=== PATIENT | female | born 1955 | race Caucasian/White ===

== ENCOUNTER 2018-08-26 18:36 | Emergency (ER) | payer MEDICARE, OTHER ==
[~2018-08-26] VITALS: Ht 152.4 cm; Wt 79.4 kg
[~2018-08-26 18:36] MED LIST: AMBIEN; CELEBREX; DETROL LA; DETROL LA4 MG PO; ESTRACE0.5 MG PO; HYDROCODONE; HYDROCODONE-AP1 EA28 PO; HYOSCYAMINE0.125 MG PO; IMITREX; LEVOTHYROXINE; LEVOTHYROXINE125 MCG PO; MAXALT10 MG PO; MELOXICAM7.5 MG PO; MONTELUKAST SOD10 MG PO; NEXIUM40 MG PO; NORCO 7.5-3251 EACH PO; ORACEA; PROPRANOLOL HCL80 MG PO; SIMVASTATIN; SIMVASTATIN40 MG PO; SKELAXIN; SKELAXIN800 M1 PO; SUCRALFATE1 GM PO; TEMAZEPAM30 MG PO; VITAMIN B-121000 MCG PO; VITAMIN D1000 UNIT PO; Z.0.AMBIEN CR12.5 MG PO; Z.0.CELEBREX200 MG PO; Z.0.DETROL LA4 MG PO; Z.0.IMITREX100 MG PO; Z.0.LEVOTHYROXINE25 PO; Z.0.SIMVASTATIN40 MG PO
--- OUTSIDE RECORDS SUMMARY | 2018-08-26 18:40 | XMS REPORT ---
Author Author Alek Sweeney Organization [employer] Address Unknown Phone Unavailable Care Team Providers Care Nurse Leader Name Role Phone Alek Sweeney CP Unavailable Allergies No Known Allergies Problems Problem Type Condition Code Onset Dates Condition Status Problem Rheumatoid arthritis M06.9 Active Problem Polyarthritis M13.0 Active Problem Osteopenia M85.80 Active Medications Medication Code System Code Instructions Start Date End Date Status Dosage Enbrel Mini [facility] 88937469934 50 MG/ML Subcutaneous qwkly July 21, 2018 Active 1 ml Results No Known Results Summary Purpose [employer] Submission
--- OUTSIDE RECORDS SUMMARY | 2018-08-26 18:40 | XMS REPORT ---
Author Author Alek Sweeney [facility] [employer] Address Unknown Phone Unavailable Care Team Providers Care Imaging Tech Name Role Phone Alek Sweeney Unavailable Allergies, Adverse Reactions, Alerts Substance Reaction Event Type Codeine Info Not Available Non Drug Allergy Plastic adhesive tape Info Not Available Non Drug Allergy Cortisone Celestone Elevated blood pressure Non Drug Allergy Penicillin hives Non Drug Allergy Morphine Info Not Available Non Drug Allergy Iodine hives Non Drug Allergy Problems Problem Type Condition Code Onset Dates Condition Status Problem Rheumatoid arthritis M06.9 Active Problem Polyarthritis M13.0 Active Problem Osteopenia M85.80 Active Assessment Osteopenia M85.80 Active Assessment Rheumatoid arthritis M06.9 Active Medications Medication Code System Code Instructions Start Date End Date Status Dosage Humira [facility] 74838167143 40 MG/0.4ML Subcutaneous q weekly Apr 09, 2018 September 12, 2018 Active 0.4 ml Metoprolol Tartrate ND 46329692936 25 MG Orally Twice a day Active 1 tablet with food Phenytoin Sodium [facility] [address]-28 100 MG Orally daily Active 1 capsule Folic Acid ND 07689803610 1 MG Orally Once a day Jan 04, 2018 Active 1 tablet Temazepam ND 81426838729 30 MG Orally Once a day Active 1 capsule at bedtime as needed Alendronate Sodium [facility] 98111103525 35 MG Orally once a week Jan 04, 2018 Active 1 tablet Methotrexate ND 27956127694 2.5mg Orally Once a week Jan 04, 2018 Active 8 tablets Gabapentin ND 71801179431 600 MG Orally Once a day Active 1 tablet Propranolol HCl ND 06101904591 80 MG Orally Twice a day Active 1 tablet Levothyroxine Sodium ND 22360326801 125 MCG Orally Once a day Active 1 tablet on an empty stomach in the morning Furosemide ND 46302677383 20 MG Orally Once a day Active 1 tablet Omeprazole ND 74634266780 40 MG Orally Once a day Active 1 capsule Calcium 600+D [facility] 35663338844 600-800 MG-UNIT Orally Once a day Active 1 tablet with a meal Vitamin D3 [facility] 30822185437 2000 UNIT Orally Once a day Active 1 capsule Hydrocodone-Acetaminophen [facility] 33932156960 7.5-325 MG Orally every 6 hrs Active 1 tablet as needed Biotin [facility] 58622954530 5000 MCG Orally Once a day Active 1 capsule Maxalt [facility] 12300127252 10 MG Orally Once a day Active 1 tablet as needed one time Spironolactone [facility] 45429449406 25 MG Orally Once a day Active 1 tablet with food Tizanidine HCl [facility] 21024501018 4 MG Orally Three times a day Active 1 capsule as needed Vital Signs Date/Time: June 14, 2018 BMI 31.60 Index Weight 161.8 lbs Height 60 in Temperature 96.3 F Cardiac Monitoring Heart Rate 60 /min Blood Pressure Diastolic 58 mm Hg Blood Pressure Systolic 90 mm Hg Results No Known Results Summary Purpose [employer] Submission
--- OUTSIDE RECORDS SUMMARY | 2018-08-26 18:40 | XMS REPORT ---
Author Grabiel Kenney Organization [employer] Address Unknown Phone Unavailable Care Team Providers Care Vice President Media Relations Name Role Phone Grabiel Ortiz CP Unavailable Allergies No Known Allergies Problems Problem Type Condition Code Onset Dates Condition Status Problem Rheumatoid arthritis M06.9 Active Problem Polyarthritis M13.0 Active Problem Osteopenia M85.80 Active Medications No Known Medications Results No Known Results Summary Purpose [employer] Submission
--- OUTSIDE RECORDS SUMMARY | 2018-08-26 18:40 | XMS REPORT ---
Author Grabiel Kenney Organization [employer] Address Unknown Phone Unavailable Care Team Providers Care Staying Machine Operator Name Role Phone Grabiel Ortiz CP Unavailable Allergies No Known Allergies Problems Problem Type Condition Code Onset Dates Condition Status Problem Rheumatoid arthritis M06.9 Active Problem Polyarthritis M13.0 Active Problem Osteopenia M85.80 Active Medications No Known Medications Results No Known Results Summary Purpose [employer] Submission
--- OUTSIDE RECORDS SUMMARY | 2018-08-26 18:40 | XMS REPORT ---
Author Author Alek Sweeney [facility] [employer] Address Unknown Phone Unavailable Care Team Providers Care Archives Technician Name Role Phone Alek Sweeney Unavailable Allergies, Adverse Reactions, Alerts Substance Reaction Event Type Plastic adhesive tape Info Not Available Non Drug Allergy Cortisone Celestone Elevated blood pressure Non Drug Allergy Penicillin hives Non Drug Allergy Morphine Info Not Available Non Drug Allergy Iodine hives Non Drug Allergy Codeine Info Not Available Non Drug Allergy Problems Problem Type Condition Code Onset Dates Condition Status Problem Rheumatoid arthritis M06.9 Active Problem Polyarthritis M13.0 Active Problem Osteopenia M85.80 Active Assessment Osteopenia M85.80 Active Assessment Rheumatoid arthritis M06.9 Active Medications Medication Code System Code Instructions Start Date End Date Status Dosage Phenytoin Sodium [facility] [address]-39 100 MG Orally daily Active 1 capsule Gabapentin ND 60245115847 600 MG Orally Once a day Active 1 tablet Humira [facility] 68329291910 40 MG/0.4ML Subcutaneous Feb 02, 2018 Active 0.4 ml Furosemide [facility] 38046702066 20 MG Orally Once a day Active 1 tablet Alendronate Sodium ND 58512744544 35 MG Orally once a week Jan 04, 2018 Active 1 tablet Propranolol HCl ND 09549164825 80 MG Orally Twice a day Active 1 tablet Temazepam ND 44595097899 30 MG Orally Once a day Active 1 capsule at bedtime as needed Metoprolol Tartrate ND 32328427490 25 MG Orally Twice a day Active 1 tablet with food Tizanidine HCl ND 54149984842 4 MG Orally Three times a day Active 1 capsule as needed Spironolactone ND 22789632066 25 MG Orally Once a day Active 1 tablet with food Biotin ND 88950630159 5000 MCG Orally Once a day Active 1 capsule Tumeric NDC 0 300 MG Orally Once a day Active 1 capsule Calcium 600+D [facility] 52870719908 600-800 MG-UNIT Orally Once a day Active 1 tablet with a meal Hydrocodone-Acetaminophen [facility] 74477784839 7.5-325 MG Orally every 6 hrs Active 1 tablet as needed Maxalt [facility] 19411809183 10 MG Orally Once a day Active 1 tablet as needed one time Levothyroxine Sodium ND 61288507552 100 MCG Orally Once a day Active 1 tablet on an empty stomach in the morning Folic Acid ND 91753756356 1 MG Orally Once a day Jan 04, 2018 Active 1 tablet Levothyroxine Sodium [facility] 92151004281 125 MCG Orally Once a day Active 1 tablet on an empty stomach in the morning Omeprazole [facility] 17126181979 40 MG Orally Once a day Active 1 capsule Vitamin D3 [facility] 18026389902 2000 UNIT Orally Once a day Active 1 capsule Methotrexate NDC 0 2.5mg Orally Once a week Jan 04, 2018 Active 8 tablets Vital Signs Date/Time: Mar 16, 2018 BMI 30.46 Index Weight 156 lbs Height 60 in Temperature 97.8 F Cardiac Monitoring Heart Rate 68 /min Blood Pressure Diastolic 80 mm Hg Blood Pressure Systolic 130 mm Hg Results No Known Results Summary Purpose [employer] Submission
--- OUTSIDE RECORDS SUMMARY | 2018-08-26 18:40 | XMS REPORT | Continuity of Care Document ---
Author Author [facility] Interface Address Unknown Phone Unavailable Problems Problem Status Onset Date Classification Date Reported Comments Source Z12.31 - ENCNTR SCREEN MAMMOGRAM FOR MA Active 02/06/2017 [facility] V76.12 - SCREEN MAMMOGRA Active 05/15/2014 [facility] Migraines Active Problem 05/23/2015 [facility] Hypothyroid Active Problem 05/23/2015 [facility] GERD Active Problem 05/23/2015 [facility] Menopausal and postmenopausal disorder Active Diagnosis 05/03/2014 [facility] Routine general medical examination at a health care facility Active Diagnosis 05/03/2014 [facility] Chronic back pain Active Problem 05/23/2015 [facility] Graves disease Active Problem 05/23/2015 [facility] Body Mass Index 33.0-33.9, adult Active Diagnosis 05/03/2014 [facility] Obesity Active Problem 05/23/2015 [facility] Multiple environmental allergies Active Problem 05/23/2015 [facility] Asthma Active Problem 05/23/2015 [facility] DDD Active Problem 05/23/2015 [facility] Hyperlipemia Active Problem 05/11/2014 [facility] Bladder incontinence Active Problem 05/23/2015 [facility] Insomnia Active Problem 05/23/2015 [facility] Hormone replacement therapy Active Problem 05/23/2015 [facility] Hyperlipidemia Active Problem 05/23/2015 [facility] Gastroenteritis Active Diagnosis 05/17/2014 [facility] Rheumatoid arthritis Active Problem 07/24/2018 Sourav Ortiz Polyarthritis Active Problem 07/24/2018 Sourav Ortiz Osteopenia Active Problem 07/24/2018 Sourav Ortiz Hand pain, right Active Diagnosis 11/11/2017 Sourav Ortiz Hand pain, left Active Diagnosis 11/11/2017 Sourav Ortiz Depression Active Diagnosis 06/27/2014 [facility] Asthma Active Problem 07/29/2012 [facility] Bronchitis Active Problem 07/29/2012 [facility] Eczema Active Problem 07/29/2012 [facility] Hemorrhoids Active Problem 07/29/2012 [facility] Migraine Active Problem 07/29/2012 [facility] Osteoarthritis Active Problem 07/29/2012 [facility] Reflux Active Problem 07/29/2012 [facility] Sinusitis Active Problem 07/29/2012 [facility] Thyroid disease Active Problem 07/29/2012 [facility] Asthma Active Problem 08/27/2017 [facility] Bronchitis Active Problem 08/27/2017 [facility] Eczema Active Problem 08/27/2017 [facility] Hemorrhoids Active Problem 08/27/2017 [facility] Migraine Active Problem 08/27/2017 [facility] Osteoarthritis Active Problem 08/27/2017 [facility] Reflux Active Problem 08/27/2017 [facility] Sinusitis Active Problem 08/27/2017 [facility] Thyroid disease Active Problem 08/27/2017 [facility] Medications Medication Details Route Status Patient Instructions Ordering Provider Order Date Source Enbrel Mini 1 ml Subcutaneous Active 50 MG/ML Subcutaneous qwkly Zahra 07/21/2018 Sourav Ortiz Enbrel Mini 1 ml Subcutaneous Active 50 MG/ML Subcutaneous qwkly Zahra 07/12/2018 Sourav Ortiz Humira 0.4 ml Subcutaneous Active 40 MG/0.4ML Subcutaneous q weekly Zahra 04/09/2018 Sourav Ortiz Humira 0.4 ml Subcutaneous Active 40 MG/0.4ML Subcutaneous Zahra 02/02/2018 Sourav Ortiz Alendronate Sodium 1 tablet Orally Active 35 MG Orally once a week Zahra 01/04/2018 Sourav Ortiz Folic Acid 1 tablet Orally Active 1 MG Orally Once a day Zahra 01/04/2018 Sourav Ortiz Methotrexate 8 tablets Orally Active 2.5mg Orally Once a week Zahra 01/04/2018 Sourav Ortiz Methotrexate 8 tablets Orally Active 2.5mg Orally Once a week Zahra 01/04/2018 Sourav Ortiz Hydroxychloroquine Sulfate 1 tablet with food or milk Orally Active 200 MG Orally bid 01/04/2018 Sourav Ortiz Folic Acid 1 tablet Orally Active 1 MG Orally Once a day 12/10/2017 Sourav Ortiz Methotrexate 4 tabs x 1wk, 6tabs x1wk and then take 8 tabs Orally Active 2.5mg Orally Once a week 12/10/2017 Sourav Ortiz Alendronate Sodium 1 tablet Orally Active 35 MG Orally once a week 12/10/2017 Sourav Ortiz PredniSONE 1 tab Orally Active 5 MG Orally Once a day 12/10/2017 Sourav Ortiz PredniSONE 1 tab Orally Active 5 MG Orally Once a day 11/06/2017 Sourav Ortiz Celebrex 1 capsule with food Orally Active 100 MG Orally Twice a day 11/06/2017 Sourav Ortiz Hydroxychloroquine Sulfate 1 tablet with food or milk Orally Active 200 MG Orally bid 11/06/2017 Sourav Ortiz Detrol LA 1 capsule by mouth Active 4 mg by mouth Once a day [facility] 11/26/2014 [facility] Escitalopram Oxalate 1 tablet Orally Active 10 mg Orally Once a day Evans 06/21/2014 [facility] influenza virus vaccine, inactivated 0.5 ml, Route: IM, Drug Form: INJ, Start date: 02/12/10 9:00:00, Stop date: 02/12/10 9:00:00 IM No Longer Active SYSTEM 02/12/2010 [facility] Vitamin B-12 Unknown Sublingual Active 2500 MCG Sublingual [facility] Nexium 1 capsule Orally Active 20 MG Orally Once a day [facility] Maxalt 1 tablet as needed one time Orally Active 10 mg Orally Once a day [facility] Simvastatin 1 tablet in the evening Orally Active 40 MG Orally Once a day [facility] Montelukast Sodium 1 tablet in the evening Orally Active 10 MG Orally Once a day [facility] Estradiol 1 tablet Orally Active 0.5 MG Orally Once a day [facility] Levothyroxine Sodium 1 tablet Orally Active 125 MCG Orally Once a day [facility] [place] 1 tablet as needed Orally Active 7.5-325 MG Orally every 6 hrs [facility] Gabapentin 1 capsule Orally Active 300 MG Orally Three times a day [facility] Propranolol HCl Unknown Orally Active 80 MG Orally [facility] Levocetirizine Dihydrochloride 1 tablet in the evening Orally Active 5 MG Orally Once a day [facility] Methocarbamol 1 tablet Orally Active 750 MG Orally every 8 hrs [facility] Biotin 5000 1 capsule Orally Active 5 MG Orally Once a day [facility] Vitamin D3 Unknown Orally Active 2000 UNIT Orally [facility] Sucralfate 1 tablet on an empty stomach Orally Active 1 GM Orally once a day [facility] Hyoscyamine Sulfate 1 tablet before meals as needed Orally Active 0.125 MG Orally every 4 hrs [facility] Detrol LA 1 capsule Orally Active 4 MG Orally Once a day [facility] Meloxicam 1 tablet Orally Active 7.5 MG Orally Once a day [facility] Temazepam 1 capsule at bedtime as needed Orally Active 30 mg Orally Once a day [facility] Levothyroxine Sodium 1 tablet on an empty stomach in the morning Orally Active 100 MCG Orally Once a day Zahra Sourav Ortiz Hydrocodone-Acetaminophen 1 tablet as needed Orally Active 7.5- 325 MG Orally every 6 hrs Zahra Sourav Ortiz Omeprazole 1 capsule Orally Active 40 MG Orally Once a day Zahra Sourav Ortiz Biotin 1 capsule Orally Active 5000 MCG Orally Once a day Zahra Sourav Ortiz Maxalt 1 tablet as needed one time Orally Active 10 MG Orally Once a day Zahra Sourav Ortiz Spironolactone 1 tablet with food Orally Active 25 MG Orally Once a day Zahra Sourav Ortiz Vitamin B12 as directed Orally Active 2500 MCG Orally Zahra Sourav Ortiz Tizanidine HCl 1 capsule as needed Orally Active 4 MG Orally Three times a day Zahra Sourav Ortiz Propranolol HCl 1 tablet Orally Active 80 MG Orally Twice a day Zahra Sourav Ortiz Metoprolol Tartrate 1 tablet with food Orally Active 25 MG Orally Twice a day Zahra Sourav Ortiz Gabapentin 1 tablet Orally Active 600 MG Orally Once a day Zahra Sourav Ortiz Vitamin B6 1 tablet Orally Active 100 MG Orally Once a day Sourav Ortiz Vitamin D3 1 capsule Orally Active 2000 UNIT Orally Once a day Zahra Sourav Ortiz Temazepam 1 capsule at bedtime as needed Orally Active 30 MG Orally Once a day Zahra Sourav Ortiz Furosemide 1 tablet Orally Active 20 MG Orally Once a day Sourav Ortiz Tumeric 1 capsule Orally Active 300 MG Orally Once a day Zahra Sourav Ortiz Phenytoin Sodium 1 capsule Orally Active 100 MG Orally daily Zahra Sourav Ortiz Calcium 600+D 1 tablet with a meal Orally Active 600-800 MG-UNIT Orally Once a day Sourav Ortiz Levothyroxine Sodium 1 tablet on an empty stomach in the morning Orally Active 125 MCG Orally Once a day Sourav Ortiz Atorvastatin Calcium 1 tablet Orally Active 20 MG Orally Once a day Sourav Ortiz Hydroxychloroquine Sulfate 1 tablet with food or milk Orally Active 200 MG Orally bid Zahra Sourav Ortiz Allergies, Adverse Reactions, Alerts Substance Category Reaction Severity Reaction type Status Date Reported Comments Source Adhesive Tape Adverse Reaction rash Adverse Reaction Active 06/21/2014 [facility] Vancomycin HCl Adverse Reaction hives Adverse Reaction Active 06/21/2014 [facility] Morphine Sulfate Adverse Reaction rash Adverse Reaction Active 06/21/2014 [facility] Codeine Sulfate Adverse Reaction anaphylaxis Adverse Reaction Active 06/21/2014 [facility] Iodine Adverse Reaction hives Adverse Reaction Active 07/12/2018 Sourav Ortiz Plastic adhesive tape Adverse Reaction Info Not Available Adverse Reaction Active 07/12/2018 Sourav Ortiz Cortisone Celestone Adverse Reaction Elevated blood pressure Adverse Reaction Active 07/12/2018 Sourav Ortiz Penicillin Adverse Reaction hives Adverse Reaction Active 07/12/2018 Sourav Ortiz Morphine Adverse Reaction Info Not Available Adverse Reaction Active 07/12/2018 Sourav Ortiz Codeine Adverse Reaction Info Not Available Adverse Reaction Active 07/12/2018 Souravkhoi Ortiz penicillin Assertion Drug allergy Active [facility] iodinated radiocontrast dyes Assertion Drug allergy Active [facility] iodine topical Assertion Drug allergy Active [facility] morphine Assertion Drug allergy Active [facility] Tape Assertion Drug allergy Active [facility] vancomycin Assertion Propensity to adverse reactions to substance Active [facility] Immunizations Immunization Date Given Site Status Last Updated Comments Source influenza virus vaccine, inactivated 02/12/2010 completed [facility] influenza virus vaccine, inactivated 02/12/2010 Left deltoid completed [facility] Results Order Name Results Value Reference Range Date Interpretation Comments Source Breast Mammo Diag JUAN incl CAD MA Breast Mammo Diag JUAN incl CAD MA BILATERAL DIGITAL DIAGNOSTIC MAMMOGRAM WITH CAD: 08/24/2017 CLINICAL: N64.59 Other Signs And Symptoms In Breast/N64.59 Other Signs And Symptoms In Breast. Current study was evaluated with a Computer Aided Detection (CAD) system. COMPARISON:Comparison is made to exams dated: 03/04/2017 mammogram, 02/06/2017 mammogram, 06/14/2014 mammogram, 05/26/2014 mammogram, 07/27/2012 mammogram, and 07/09/2011 mammogram - [facility]. TECHNIQUE: Mammographic views were obtained using digital acquisition. Current study was also evaluated with a Computer Aided Detection (CAD) system. FINDINGS: There are scattered fibroglandular densities in both breasts. Previously seen focal asymmetry in the left breast central to the nipple anterior depth is not seen on today's exam. There are benign appearing calcifications in both breasts. Bilateral retropectoral silicone implants are stable. No significant masses, calcifications, or other findings are seen in either breast. There has been no significant interval change. IMPRESSION: BENIGN RECOMMENDATION:There is no mammographic evidence of malignancy. A 1 year screening mammogram is recommended.(08/25/2018) This exam was interpreted at [id number] for [place], SL 15. Professional services are provided by the [facility]. Violet Parker M.D., ms/geovany:08/24/2017 11:06:30 Quality Lab Technician(s): Teri Bonilla RT(R)(M), [facility] letter sent: BI-RADS 1/2 Mammogram BI-RADS: 2 Benign 08/24/2017 - - Read by: Violet Parker MD Dictated Date/time: 08/24/17 11:06 Electronically Signed by: Violet Parker MD 08/24/17 11:06 FINAL REPORT NICO Lowery Breast Complete Uni US Breast Complete Uni US COMPLETE ULTRASOUND OF LEFT BREAST AND AXILLA: 03/04/2017 CLINICAL: Left Breast Mass/N63.0 Unspecified Lump In Unspecified Breast. Comparison is made to exams dated: 03/04/2017 mammogram, 02/06/2017 mammogram, 06/14/2014 ultrasound, 06/14/2014 mammogram, 05/26/2014 mammogram, and 07/27/2012 mammogram - [facility]. Color flow and real-time ultrasound of the left breast and axilla were performed on the areas of interest. No abnormalities were seen sonographically in the left breast or the left axilla. An island of dense tissue is seen in the area of mammographic asymmetry without suspicious findings. No vascular flow is detected in this area. IMPRESSION: PROBABLY BENIGN No suspicious or discrete US findings are seen and the area of mammographic concern may be related to positioning. Therefore a follow-up mammogram with possible ultrasound in 6 months is recommended to demonstrate stability. These results were discussed with the patient who was instructed to return immeidately if she notices any changes in her physical exam. Professional services are provided by the [facility]. Aki Wong M.D. cm/:03/04/2017 14:09:59 Quality Lab Technician(s): Cintia Schwartz [facility] letter sent: BI-RADS 3 Ultrasound BI-RADS: 3 Probably benign 03/04/2017 - - Read by: Manuel Deluca MD Dictated Date/time: 03/04/17 14:09 Electronically Signed by: Manuel Deluca MD 03/04/17 14:09 FINAL REPORT NICO Lowery Breast Mammo Diag UNI incl CAD MA Breast Mammo Diag UNI incl CAD MA UNILATERAL LEFT DIGITAL DIAGNOSTIC MAMMOGRAM WITH CAD: 03/04/2017 CLINICAL: N63.0/Unspecified Lump In Unspecified Breast. Current study was evaluated with a Computer Aided Detection (CAD) system. COMPARISON:Comparison is made to exams dated: 02/06/2017 mammogram, 06/14/2014 mammogram, 05/26/2014 mammogram, 07/27/2012 mammogram, 07/09/2011 mammogram, and 06/25/2010 mammogram - [facility]. TECHNIQUE: Mammographic views were obtained using digital acquisition. Current study was also evaluated with a Computer Aided Detection (CAD) system. There are scattered fibroglandular densities in left breast. FINDINGS: There is 4.3 cm focal asymmetry in the left breast central to the nipple anterior depth. No other significant masses or calcifications are seen in the breast. IMPRESSION: INCOMPLETE: NEEDS ADDITIONAL IMAGING EVALUATION RECOMMENDATION:The 4.3 cm focal asymmetry in the left breast is indeterminate. An ultrasound is recommended. This exam was interpreted at [id number] for KERMIT Lowery. Aki Wong M.D. cm/penrad:03/04/2017 13:57:59 Quality Lab Technician(s): Teri Bonilla RT(R)(M), [facility] letter sent: BI-RADS 0 Mammogram BI-RADS: 0 Indeterminate 03/04/2017 - - Read by: aMnuel Deluca MD Dictated Date/time: 03/04/17 13:57 Electronically Signed by: Manuel Deluca MD 03/04/17 13:57 FINAL REPORT [facility] Breast Mammo Scrn JUAN incl CAD MA Breast Mammo Scrn JUAN incl CAD MA BILATERAL DIGITAL SCREENING MAMMOGRAM WITH CAD: 02/06/2017 CLINICAL: Routine/Screening. Current study was evaluated with a Computer Aided Detection (CAD) system. COMPARISON:Comparison is made to exams dated: 06/14/2014 mammogram, 05/26/2014 mammogram, and 07/27/2012 mammogram - [facility]. TECHNIQUE: Mammographic views were obtained using digital acquisition. Current study was also evaluated with a Computer Aided Detection (CAD) system. There are scattered fibroglandular densities in both breasts. FINDINGS: There is a possible 4.3 cm mass with calcifications in the left breast central to the nipple anterior depth. No other significant masses, calcifications, or other findings are seen in either breast. IMPRESSION: INCOMPLETE: NEEDS ADDITIONAL IMAGING EVALUATION RECOMMENDATION:The possible 4.3 cm mass in the left breast is indeterminate. Magnification and lateral views as well as diagnostic mammography with possible ultrasound are recommended. This exam was interpreted at [id number] at [facility]. SUMMARY: The staff from [facility] will contact the patient to schedule the additional studies. A separate report will be issued following interpretation of the additional studies. An order for a bilateral ultrasound is requested, in the event it is needed, day of diagnostic. Hortensia Ag M.D. kg/penrad:02/10/2017 08:39:29 Quality Lab Technician(s): Chcia Calderon RT(R)(M), [facility] letter sent: BI-RADS 0 Mammogram BI-RADS: 0 Indeterminate 02/06/2017 - - Read by: Hortensia Ag MD Dictated Date/time: 02/10/17 08:39 Electronically Signed by: Hortensia Ag MD 02/10/17 08:39 FINAL REPORT NICO [place] Breast Limited Uni US Breast Limited Uni US - DIGITAL MAMMO DX UNI MA/R - BREAST LIMITED UNI US/R UNILATERAL RIGHT DIGITAL DIAGNOSTIC MAMMOGRAM AND TARGETED RIGHT ULTRASOUND: 06/14/2014 CLINICAL: Callback from screening for right asymmetry. Comparison is made to exams dated: 07/09/2011 mammogram, 07/27/2012 mammogram and 05/26/2014 mammogram - [facility]. There are scattered fibroglandular densities in the right breast. Additional evaluation performed for medial right asymmetry. This was less prominent on additional views, and targeted ultrasound was negative. No significant masses, calcifications, or other findings are seen in the breast on the mammogram or targeted ultrasound. IMPRESSION: BENIGN, TARGETED ULTRASOUND BENIGN There is no mammographic or targeted sonographic evidence of malignancy. Return to annual mammogram screening schedule is recommended. SUMMARY: Findings and recommendations were discussed with the patient in person at the time of the exam. Alexy ahmadi/penrad:06/14/2014 11:17:55 Quality Lab Technician: Aspen Mcgill RT(R)(M), [facility] This exam was dictated and [facility] [id number] [facility] sent: Normal exam Mammogram BI-RADS: 2 Benign Ultrasound BI-RADS: 2 Benign 06/14/2014 - - Read by: Alexy Mendez MD Dictated Date/time: 06/14/14 11:17 Electronically Signed by: Alexy Mendez MD 06/14/14 11:17 FINAL REPORT KERMIT Lowery Digital Mammo DX Uni MA Digital Mammo DX Uni MA - DIGITAL MAMMO DX UNI MA/R - BREAST LIMITED UNI US/R UNILATERAL RIGHT DIGITAL DIAGNOSTIC MAMMOGRAM AND TARGETED RIGHT ULTRASOUND: 06/14/2014 CLINICAL: Callback from screening for right asymmetry. Comparison is made to exams dated: 07/09/2011 mammogram, 07/27/2012 mammogram and 05/26/2014 mammogram - [facility]. There are scattered fibroglandular densities in the right breast. Additional evaluation performed for medial right asymmetry. This was less prominent on additional views, and targeted ultrasound was negative. No significant masses, calcifications, or other findings are seen in the breast on the mammogram or targeted ultrasound. IMPRESSION: BENIGN, TARGETED ULTRASOUND BENIGN There is no mammographic or targeted sonographic evidence of malignancy. Return to annual mammogram screening schedule is recommended. SUMMARY: Findings and recommendations were discussed with the patient in person at the time of the exam. Alexy ahmadi/penrad:06/14/2014 11:17:55 Quality Lab Technician: Aspen MCKEON(Alix)(Pete), [facility] This exam was dictated and interpreted by [id number] for KERMIT Lowery. letter sent: Normal exam Mammogram BI-RADS: 2 Benign Ultrasound BI-RADS: 2 Benign 06/14/2014 - - Read by: Alexy Mendez MD Dictated Date/time: 06/14/14 11:17 Electronically Signed by: Alexy Mendez MD 06/14/14 11:17 FINAL REPORT KERMIT Lowery Digital Mammo Screening Juan MA Digital Mammo Screening Juan MA - DIGITAL MAMMO SCREENING JUAN MA BILATERAL DIGITAL SCREENING MAMMOGRAM WITH CAD: 05/26/2014 CLINICAL: Routine. Current study was evaluated with a Computer Aided Detection (CAD) system. Comparison is made to exams dated: 06/25/2010 mammogram, 07/09/2011 mammogram and 07/27/2012 mammogram - [facility]. There are scattered fibroglandular densities in both breasts. There are bilateral silicone breast implants. There is an asymmetry in the right breast sub-areolar depth medial region seen on the craniocaudal view only. No other significant masses, calcifications, or other findings are seen in either breast. IMPRESSION: INCOMPLETE: NEEDS ADDITIONAL IMAGING EVALUATION The asymmetry in the right breast is indeterminate. Additional views with possible ultrasound are recommended. SUMMARY: The patient will be contacted by [facility] to return for further imaging. Attempts to contact the patient should also be made by the referring physician in the event that we are unsuccessful. Dr. Farzana Christopher D.O. ht/penrad:05/26/2014 14:39:15 Quality Lab Technician: Chica HANDLEY)(Pete), [facility] This exam was dictated and interpreted by [id number] for KERMIT Grier. letter sent: Additional Imaging Mammogram BI-RADS: 0 Indeterminate 05/26/2014 - - Read by: Farzana Christopher DO Dictated Date/time: 05/26/14 14:39 Electronically Signed by: Farzana Christopher DO 05/26/14 14:39 FINAL REPORT KERMIT Lowery Vital Signs Vital Sign Value Date Comments Source Weight 156.8 07/12/2018 Sourav Ortiz Height 59 07/12/2018 Sourav Ortiz Temperature Oral (F) 98.4 F 07/12/2018 Sourav Ortiz Heart Rate 54 07/12/2018 Sourav Ortiz Diastolic (mm Hg) 80 07/12/2018 Sourav Ortiz Systolic (mm Hg) 102 07/12/2018 Sourav Ortiz Weight 161.8 06/14/2018 Sourav Ortiz Height 60 06/14/2018 Sourav Ortiz Temperature Oral (F) 96.3 F 06/14/2018 Sourav Ortiz Heart Rate 60 06/14/2018 Sourav Ortiz Diastolic (mm Hg) 58 06/14/2018 Sourav Ortiz Systolic (mm Hg) 90 06/14/2018 Sourav Ortiz Weight 156 03/16/2018 Sourav Ortiz Height 60 03/16/2018 Sourav Ortiz Temperature Oral (F) 97.8 F 03/16/2018 Sourav Ortiz Heart Rate 68 03/16/2018 Sourav Ortiz Diastolic (mm Hg) 80 03/16/2018 Sourav Ortiz Systolic (mm Hg) 130 03/16/2018 Sourav Ortiz Weight 153.3 02/02/2018 Sourav Ortiz Height 60 02/02/2018 Sourav Ortiz Temperature Oral (F) 97.7 F 02/02/2018 Sourav Ortiz Heart Rate 60 02/02/2018 Sourav Ortiz Diastolic (mm Hg) 70 02/02/2018 Sourav Ortiz Systolic (mm Hg) 102 02/02/2018 Sourav Ortiz Weight 143.7 12/10/2017 Sourav Ortiz Height 60 12/10/2017 Sourav Ortiz Temperature Oral (F) 98.3 F 12/10/2017 Sourav Ortiz Heart Rate 64 12/10/2017 Sourav Ortiz Diastolic (mm Hg) 60 12/10/2017 Sourav Ortiz Systolic (mm Hg) 112 12/10/2017 Sourav Ortiz Weight 143 11/06/2017 Sourav Ortiz Height 60 11/06/2017 Sourav Ortiz Temperature Oral (F) 99.0 F 11/06/2017 Sourav Ortiz Heart Rate 64 11/06/2017 Sourav Ortiz Diastolic (mm Hg) 68 11/06/2017 Sourav Ortiz Systolic (mm Hg) 118 11/06/2017 Sourav Ortiz Weight 177.6 06/21/2014 [facility] Height 60 06/21/2014 [facility] Heart Rate 80 06/21/2014 [facility] Diastolic (mm Hg) 76 06/21/2014 [facility] Systolic (mm Hg) 120 06/21/2014 [facility] Weight 182 05/15/2014 [facility] Height 60 05/15/2014 [facility] Heart Rate 80 05/15/2014 [facility] Diastolic (mm Hg) 76 05/15/2014 [facility] Systolic (mm Hg) 128 05/15/2014 [facility] Weight 173 05/01/2014 [facility] Height 60 05/01/2014 [facility] Heart Rate 80 05/01/2014 [facility] Diastolic (mm Hg) 80 05/01/2014 [facility] Systolic (mm Hg) 128 05/01/2014 [facility] Encounters Location Location Details Encounter Type Encounter Number Reason For Visit Attending Provider ADM Date DC Date Status Source [facility] 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 [id number] 05/01/2014 05/01/2014 [facility] 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 [id number] 05/01/2014 05/01/2014 [facility] 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 [id number] 05/01/2014 05/01/2014 [facility] 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 [id number] 05/01/2014 05/01/2014 [facility] 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 [id number] 05/01/2014 05/01/2014 [facility] 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 [id number] 05/01/2014 05/01/2014 [facility] 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 [id number] 05/01/2014 05/01/2014 [facility] 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 [id number] 05/01/2014 05/01/2014 [facility] Update Demographics - Personal Info [id number] 05/08/2014 05/08/2014 [facility] Update Demographics - Personal Info [id number] 05/08/2014 05/08/2014 [facility] Update Demographics - Additional Info [id number] 05/08/2014 05/08/2014 [facility] Update Demographics - Additional Info [id number] 05/08/2014 05/08/2014 [facility] Mamagram request [id number] 05/08/2014 05/08/2014 [facility] Mamagram request [id number] 05/08/2014 05/08/2014 [facility] Update Demographics - Personal Info [id number] 05/08/2014 05/08/2014 [facility] Update Demographics - Personal Info [id number] 05/08/2014 05/08/2014 [facility] Update Demographics - Personal Info [id number] 05/08/2014 05/08/2014 [facility] Update Demographics - Personal Info [id number] 05/08/2014 05/08/2014 [facility] Update Demographics - Personal Info [id number] 05/08/2014 05/08/2014 [facility] Update Demographics - Additional Info [id number] 05/08/2014 05/08/2014 [facility] Update Demographics - Additional Info [id number] 05/08/2014 05/08/2014 [facility] Update Demographics - Additional Info [id number] 05/08/2014 05/08/2014 [facility] Update Demographics - Additional Info [id number] 05/08/2014 05/08/2014 [facility] Update Demographics - Additional Info [id number] 05/08/2014 05/08/2014 [facility] Mamagram request [id number] 05/08/2014 05/08/2014 [facility] Mamagram request [id number] 05/08/2014 05/08/2014 [facility] Mamagram request [id number] 05/08/2014 05/08/2014 [facility] Mamagram request [id number] 05/08/2014 05/08/2014 [facility] Mamagram request [id number] 05/08/2014 05/08/2014 [facility] Mamagram Request [id number] 05/08/2014 05/08/2014 [facility] Mamagram Request [id number] 05/08/2014 05/08/2014 [facility] Mamagram Request [id number] 05/09/2014 05/09/2014 [facility] Mamagram Request [id number] 05/09/2014 05/09/2014 [facility] Mamagram Request [id number] 05/09/2014 05/09/2014 [facility] Mamagram Request [id number] 05/09/2014 05/09/2014 [facility] Update Demographics - Additional Info [id number] 05/10/2014 05/10/2014 [facility] Update Demographics - Additional Info [id number] 05/10/2014 05/10/2014 [facility] Update Demographics - Additional Info [id number] 05/10/2014 05/10/2014 [facility] Update Demographics - Additional Info [id number] 05/10/2014 05/10/2014 [facility] Update Demographics - Additional Info [id number] 05/10/2014 05/10/2014 [facility] Update Demographics - Additional Info [id number] 05/10/2014 05/10/2014 [facility] 2 WEEK FOLLOW UP [id number] 05/15/2014 05/15/2014 [facility] 2 WEEK FOLLOW UP [id number] 05/15/2014 05/15/2014 [facility] 2 WEEK FOLLOW UP [id number] 05/15/2014 05/15/2014 [facility] 2 WEEK FOLLOW UP [id number] 05/15/2014 05/15/2014 [facility] 2 WEEK FOLLOW UP [id number] 05/15/2014 05/15/2014 [facility] 2 WEEK FOLLOW UP [id number] 05/15/2014 05/15/2014 [facility] [place] [facility] [id number] Nu GonzalezSidra 05/26/2014 05/27/2014 [facility] [place] [facility] New Refill Request [id number] 05/26/2014 05/26/2014 [facility] New Refill Request [id number] 05/26/2014 05/26/2014 [facility] Medication Refills [id number] 05/26/2014 05/26/2014 [facility] Medication Refills [id number] 05/26/2014 05/26/2014 [facility] New Appointment Request [id number] 05/26/2014 05/26/2014 [facility] New Appointment Request [id number] 05/26/2014 05/26/2014 [facility] New Refill Request [id number] 05/27/2014 05/27/2014 [facility] Medication Refills [id number] 05/27/2014 05/27/2014 [facility] New Appointment Request [id number] 05/27/2014 05/27/2014 [facility] Refill [id number] 05/30/2014 05/30/2014 [facility] Refill [id number] 05/30/2014 05/30/2014 [facility] Refill [id number] 05/30/2014 05/30/2014 [facility] [place] [facility] [id number] Nu Lawrence 06/14/2014 06/15/2014 [facility] [place] [facility] SICK [id number] 06/21/2014 06/21/2014 [facility] SICK [id number] 06/21/2014 06/21/2014 [facility] SICK [id number] 06/21/2014 06/21/2014 [facility] New Refill Request [id number] 09/18/2014 09/18/2014 [facility] New Refill Request [id number] 09/18/2014 09/18/2014 [facility] New Refill Request [id number] 12/16/2014 12/16/2014 [facility] New Refill Request [id number] 12/16/2014 12/16/2014 [facility] New Appointment Request [id number] 12/16/2014 12/16/2014 [facility] medication [id number] 05/16/2015 05/16/2015 [facility] [place] [facility] [id number] Ryley Juarez 02/06/2017 02/07/2017 [facility] [place] [facility] [place] [facility] [id number] Ryley Juarez 03/04/2017 03/05/2017 [facility] [place] [facility] [place] [facility] [id number] Ryley Juarez 08/24/2017 08/25/2017 [facility] [place] Procedures Procedure Code Date Perfomer Comments Source
--- OUTSIDE RECORDS SUMMARY | 2018-08-26 18:40 | XMS REPORT ---
Author Author Alek Sweeney [facility] eClinicalWorks Address Unknown Phone Unavailable Care Team Providers Care Printing Machine Operator Tape Rules Name Role Phone Alek Sweeney Unavailable Allergies, [...] M13.0 Active Problem Osteopenia M85.80 Active Assessment Rheumatoid arthritis M06.9 Active Medications Medication Code System Code Instructions Start Date End Date Status Dosage Humira [facility] 84104542141 40 MG/0.4ML Subcutaneous q weekly Apr 09, 2018 September 12, 2018 Inactive 0.4 ml Enbrel Mini [facility] 80122953558 50 MG/ML Subcutaneous qwkly July 12, 2018 August 11, 2018 Active 1 ml Spironolactone ND 34871547568 25 MG Orally Once a day Active 1 tablet with food Temazepam ND 35455453369 30 MG Orally Once a day Active 1 capsule at bedtime as needed Folic Acid ND 81191637859 1 MG Orally Once a day Jan 04, 2018 Active 1 tablet Hydrocodone-Acetaminophen ND 71704269817 7.5-325 MG Orally every 6 hrs Active 1 tablet as needed Metoprolol Tartrate ND 11732699584 25 MG Orally Twice a day Active 1 [place] [address]-24 100 MG Orally daily Active 1 capsule Maxalt ND 72192070044 10 MG Orally Once a day Active 1 tablet as needed one time Methotrexate ND 73763513521 2.5mg Orally Once a week Jan 04, 2018 Active 8 tablets Atorvastatin Calcium ND 77986532291 20 MG Orally Once a day Active 1 tablet Propranolol HCl ND 04002490138 80 MG Orally Twice a day Active 1 tablet Tizanidine HCl [facility] 07946955517 4 MG Orally Three times a day Active 1 capsule as needed Vitamin D3 [facility] 24275681473 2000 UNIT Orally Once a day Active 1 capsule Gabapentin [facility] 90280888325 600 MG Orally Once a day Active 1 tablet Calcium 600+D [facility] 31662145811 600-800 MG-UNIT Orally Once a day Active 1 tablet with a meal Alendronate Sodium [facility] 22040720273 35 MG Orally once a week Jan 04, 2018 Active 1 tablet Omeprazole [facility] 38979038716 40 MG Orally Once a day Active 1 capsule Furosemide [facility] 76022827152 20 MG Orally Once a day Active 1 tablet Levothyroxine Sodium [facility] 03113268725 125 MCG Orally Once a day Active 1 tablet on an empty stomach in the morning Vital Signs Date/Time: July 12, 2018 BMI 31.67 Index Weight 156.8 lbs Height 59 in Temperature 98.4 F Cardiac Monitoring Heart Rate 54 /min Blood Pressure Diastolic 80 mm Hg Blood Pressure Systolic 102 mm Hg Results No Known Results Summary Purpose eClinicalWorks Submission
--- OUTSIDE RECORDS SUMMARY | 2018-08-26 18:41 | XMS REPORT | Summary of Care ---
Author Organization Unknown Address Unknown Phone Unavailable Encounter [facility] Encntr_luis(FIN) [id number] Date(s): 05/26/14 - 05/26/14 [facility] Outpatient Imaging - [address] [address] [place] Discharge Disposition: Home Physician Attending: Nu Lawrence DO Reason for Visit V76.12 - SCREEN MAMMOGRA Problem List Condition Effective Dates Status Health Status Informant Asthma(Confirmed) Active Bronchitis(Confirmed Active ) Eczema(Confirmed) Active Hemorrhoids(Confirme Active d) Migraine(Confirmed) Active Osteoarthritis(Confi Active rmed) Reflux(Confirmed) Active Sinusitis(Confirmed) Active Thyroid Active disease(Confirmed) Allergies, Adverse Reactions, Alerts Substance Reaction Severity Status iodinated radiocontrast Active dyes iodine topical Active morphine Active penicillin Active Tape Active vancomycin Active Medications No data available for this section Medications Administered During Your Visit No data available for this section Immunizations Vaccine Date Refusal Reason influenza virus vaccine, inactivated 02/12/10
--- OUTSIDE RECORDS SUMMARY | 2018-08-26 18:41 | XMS REPORT | CCD ---
Author Author Auto Generated Organization [facility] [place] Address Unknown Phone Unavailable Care Team Providers Care Housing Inspector Name Role Phone Anna Ortega CP Allergies, Adverse Reactions, Alerts Substance Reaction Status iodinated radiocontrast dyes Active iodine topical Active morphine Active penicillin Active Tape Active vancomycin Active Problem List Condition Effective Dates Status Asthma Active Bronchitis Active Eczema Active Hemorrhoids Active Migraine Active Osteoarthritis Active Reflux Active Sinusitis Active Thyroid disease Active Medications Medication Instructions Start Date End Date Status influenza virus 0.5 ml, Route: IM, Drug Form: INJ, 02/12/2010 02/12/2010 Completed vaccine, inactivated Start date: 02/12/10 9:00:00, Stop date: 02/12/10 9:00:00 Immunizations Vaccine Date Status influenza virus vaccine, inactivated 02/12/2010 Auth (Verified)
--- OUTSIDE RECORDS SUMMARY | 2018-08-26 18:41 | XMS REPORT ---
Author Grabiel Kenney Organization e[employer] Address Unknown Phone Unavailable Care Team Providers Care Training And Development Director Name Role Phone Grabiel Ortiz CP Unavailable Allergies No Known Allergies Problems Problem Type Condition Code Onset Dates Condition Status Problem Rheumatoid arthritis M06.9 Active Problem Polyarthritis M13.0 Active Problem Osteopenia M85.80 Active Medications No Known Medications Results No Known Results Summary Purpose [employer] Submission
--- OUTSIDE RECORDS SUMMARY | 2018-08-26 18:41 | XMS REPORT | Summary of Care ---
Author Author [facility] [place] Organization [facility] [place] Address Unknown Phone Unavailable Encounter HQ Michael_luis(FIN) [id number] Date(s): 03/04/17 - 03/04/17 [facility] - [place] [address] [phone] Discharge Disposition: Home or Self Care Attending Physician: Ryley Juarez DO Vital Signs No data available for this section Problem List Condition Effective Dates Status Health Status Informant Asthma(Confirmed) Active Bronchitis(Confirmed Active ) Eczema(Confirmed) Active Hemorrhoids(Confirme Active d) Migraine(Confirmed) Active Osteoarthritis(Confi Active rmed) Reflux(Confirmed) Active Sinusitis(Confirmed) Active Thyroid Active disease(Confirmed) Allergies, Adverse Reactions, Alerts Substance Reaction Severity Status iodinated radiocontrast Active dyes iodine topical Active penicillin Active vancomycin Active morphine Active Tape Active Medications No data available for this section Results No data available for this section Immunizations Given and Recorded Vaccine Date Status Refusal Reason influenza virus vaccine, inactivated 02/12/10 Given Procedures No data available for this section Social History No data available for this section Assessment and Plan No data available for this section
--- OUTSIDE RECORDS SUMMARY | 2018-08-26 18:41 | XMS REPORT ---
Author Author Grabiel Ortiz Organization [employer] Address Unknown Phone Unavailable Care Team Providers Care Ground Crewman Aircraft Support Name Role Phone Grabiel Ortiz CP Unavailable Allergies No Known Allergies Problems Problem Type Condition Code Onset Dates Condition Status Problem Polyarthritis M13.0 Active Medications No Known Medications Results No Known Results Summary Purpose eClinicalWorks Submission
--- OUTSIDE RECORDS SUMMARY | 2018-08-26 18:41 | XMS REPORT ---
Author Author Nu Lowe [facility] eClinicalWorks Address Unknown Phone Unavailable Care Team Providers Care Laborer Road Name Role Phone Nu Lowe Unavailable Encounters Encounter Location Date Update Demographics - Personal Info [facility] May 08, 2014 ASSISTANT STATISTICIAN-EST PCP [facility] May 01, 2014 Mamagram request [facility] May 08, 2014 Update Demographics - Additional Info [facility] May 08, 2014 Problems Problem Type Condition ICD-9 Code Onset Dates Condition Status Problem Asthma 493.90 Active Problem Insomnia 780.52 Active Problem Hyperlipemia 272.4 Active Problem Chronic back pain 724.5 Active Problem Graves disease 242.00 Active Problem Obesity 278.00 Active Problem Hormone replacement therapy V07.4 Active Problem Migraines 346.90 Active Problem Hypothyroid 244.9 Active Problem GERD (gastroesophageal reflux disease) 530.81 Active Problem DDD (degenerative disc disease) 722.6 Active Problem Bladder incontinence 788.30 Active Problem Multiple environmental allergies V15.09 Active Social History Social History Element Qualifiers Date Reported Flu Vaccine: . 2013May 01, 2014 Ethnicity . Status , Is romansh your primary language? Yes May 01, 2014 Where or with whom do you live ? . Spouse and children May 01, 2014 Depression Screening: . negative May 01, 2014 Tobacco Use: . Are you a: never smoker May 01, 2014 Marital Status: . Abhishek May 01, 2014 Caffeine intake? . Status: Yes, What type: Coffee, 1 cup a day May 01, 2014 Do you exercise? . Answer: Yes, Type: walking May 01, 2014 Do you drink alcohol? . Status: Yes, Type: Wine, How often? Rarely, How much? Socially May 01, 2014 Occupation: . Disabled May 01, 2014 Summary Purpose eClinicalWorks Submission
--- OUTSIDE RECORDS SUMMARY | 2018-08-26 18:41 | XMS REPORT ---
Author Author Tyler Krueger Organization eClinicalWorks Address Unknown Phone Unavailable Care Team Providers Care Smalltalk Developer Name Role Phone Tyler Krueger CP Unavailable Allergies, Adverse Reactions, Alerts Substance Reaction Event Type Adhesive Tape rash Drug Allergy penicillin hives Drug Allergy Vancomycin HCl hives Drug Allergy Morphine Sulfate rash Drug Allergy Iodine hives Drug Allergy Codeine Sulfate anaphylaxis Drug Allergy Encounters Encounter Location Date Update Demographics - Personal Info [facility] May 08, 2014 Update Demographics - Additional Info [facility] May 10, 2014 Mamagram Request [facility] May 08, 2014 2 WEEK FOLLOW UP [facility] May 15, 2014 CEMETERY KEEPER-EST PCP [facility] May 01, 2014 Refill [facility] May 30, 2014 Mamagram request [facility] May 08, 2014 SICK [facility] June 21, 2014 Update Demographics - Additional Info [facility] May 08, 2014 New Appointment Request [facility] May 26, 2014 New Refill Request [facility] May 26, 2014 Medication Refills [facility] May 26, 2014 Problems Problem Type Condition ICD-9 Code Onset Dates Condition Status Problem Asthma 493.90 Active Problem Migraines 346.90 Active Problem Insomnia 780.52 Active Problem Obesity 278.00 Active Problem Chronic back pain 724.5 Active Problem Hyperlipidemia 272.4 Active Problem GERD (gastroesophageal reflux disease) 530.81 Active Problem Hormone replacement therapy V07.4 Active Problem Graves disease 242.00 Active Problem Hypothyroid 244.9 Active Assessment Insomnia 780.52 Active Problem DDD (degenerative disc disease) 722.6 Active Assessment Depression 311 Active Problem Bladder incontinence 788.30 Active Assessment Chronic back pain 724.5 Active Problem Multiple environmental allergies V15.09 Active Medications Medication Code System Code Instructions Start Date End Date Status Dosage Methocarbamol [facility] [address]-82 750 MG Orally every 8 hrs Active 1 tablet Levocetirizine Dihydrochloride [facility] [address]-66 5 MG Orally Once a day Active 1 tablet in the evening Meloxicam [facility] [address]-85 7.5 MG Orally Once a day Active 1 tablet Maxalt [facility] [address]-41 10 mg Orally Once a day Active 1 tablet as needed one time Vitamin D3 [facility] [address]-12 2000 UNIT Orally Active Unknown Montelukast Sodium [facility] [address]-23 10 MG Orally Once a day Active 1 tablet in the evening Nexium [facility] [address]-51 20 MG Orally Once a day Active 1 capsule Biotin 5000 [facility] [address]-36595 5 MG Orally Once a day Active 1 capsule Levothyroxine Sodium [facility] [address]-18 125 MCG Orally Once a day Active 1 tablet Vitamin B-12 [facility] [address]-36 2500 MCG Sublingual Active Unknown Temazepam [facility] [address]-82 30 mg Orally Once a day Active 1 capsule at bedtime as needed Sucralfate [facility] [address]-56 1 GM Orally once a day Active 1 tablet on an empty stomach Escitalopram Oxalate [facility] [address]-34 10 mg Orally Once a day June 21, 2014 Active 1 tablet Milan [facility] [address]-74 7.5-325 MG Orally every 6 hrs Active 1 tablet as needed Estradiol [facility] [address]-61 0.5 MG Orally Once a day Active 1 tablet Simvastatin [facility] [address]-35 40 MG Orally Once a day Active 1 tablet in the evening Detrol LA [facility] [address]-94 4 mg by mouth Once a day Nov 26, 2014 Active 1 capsule Social History Social History Element Qualifiers Date Reported Flu Vaccine: . 2013June 21, 2014 Ethnicity . Status , Is guinean your primary language? Yes June 21, 2014 Where or with whom do you live ? . Spouse and children June 21, 2014 Depression Screening: . negative June 21, 2014 Tobacco Use: . Are you a: never smoker June 21, 2014 Marital Status: . Abhishek June 21, 2014 Caffeine intake? . Status: Yes, What type: Coffee, 1 cup a day June 21, 2014 Do you exercise? . Answer: Yes, Type: walking June 21, 2014 Do you drink alcohol? . Status: Yes, Type: Wine, How often? Rarely, How much? Socially June 21, 2014 Occupation: . Disabled June 21, 2014 Family history Qualifier Description Comment Date Reported Father lung cancer June 21, 2014 Paternal Grandmother Comment not available June 21, 2014 Mother Comment not available June 21, 2014 Siblings alive paternal grandmother cancer 1 sister lung cancer daughter - obesity June 21, 2014 Paternal Grandfather Comment not available June 21, 2014 Vital Signs Date/Time: June 21, 2014 Weight 177.6 lbs Height 60 in Cardiac Monitoring Heart Rate 80 /min Blood Pressure Diastolic 76 mm Hg Blood Pressure Systolic 120 mm Hg Summary Purpose eClinicalWorks Submission
--- OUTSIDE RECORDS SUMMARY | 2018-08-26 18:41 | XMS REPORT ---
Author Author Alek Sweeney Organization eClinicalWorks Address Unknown Phone Unavailable Care Team Providers Care Elevator Installer Name Role Phone Alek Sweeney CP Unavailable Allergies No Known Allergies Problems Problem Type Condition Code Onset Dates Condition Status Problem Rheumatoid arthritis M06.9 Active Problem Polyarthritis M13.0 Active Problem Osteopenia M85.80 Active Medications Medication Code System Code Instructions Start Date End Date Status Dosage Folic Acid NDC 94117386126 1 MG Orally Once a day Jan 04, 2018 Active 1 tablet Alendronate Sodium NDC 91591367056 35 MG Orally once a week Jan 04, 2018 Active 1 tablet Methotrexate NDC 0 2.5mg Orally Once a week Jan 04, 2018 Active 8 tablets Hydroxychloroquine Sulfate NDC 04276124365 200 MG Orally bid Jan 04, 2018 Active 1 tablet with food or milk Results No Known Results Summary Purpose eClinicalWorks Submission
--- OUTSIDE RECORDS SUMMARY | 2018-08-26 18:41 | XMS REPORT ---
Author Author Tyler Krueger [facility] eClinicalWorks Address Unknown Phone Unavailable Care Team Providers Care Field Logistics Coordinator Name Role Phone Tyler Krueger CP Unavailable Encounters Encounter Location Date Update Demographics - Personal Info [facility] May 08, 2014 Update Demographics - Additional Info [facility] May 10, 2014 Mamagram Request [facility] May 08, 2014 2 WEEK FOLLOW UP [facility] May 15, 2014 AGENT TELEGRAPHER-EST PCP [facility] May 01, 2014 Mamagram request [facility] May 08, 2014 Update Demographics - Additional Info [facility] May 08, 2014 New Appointment Request [facility] May 26, 2014 New Refill Request [facility] May 26, 2014 Medication Refills [facility] May 26, 2014 New Refill Request [facility] September 18, 2014 New Refill Request [facility] Dec 15, 2014 Refill [facility] May 30, 2014 SICK [facility] June 21, 2014 Problems Problem Type Condition ICD-9 Code Onset Dates Condition Status Problem Asthma 493.90 Active Problem Migraines 346.90 Active Problem Insomnia 780.52 Active Problem Obesity 278.00 Active Problem Chronic back pain 724.5 Active Problem Hyperlipidemia 272.4 Active Problem GERD (gastroesophageal reflux disease) 530.81 Active Problem Hormone replacement therapy V07.4 Active Problem Graves disease 242.00 Active Problem Hypothyroid 244.9 Active Problem DDD (degenerative disc disease) 722.6 Active Problem Bladder incontinence 788.30 Active Problem Multiple environmental allergies V15.09 Active Medications Medication Code System Code Instructions Start Date End Date Status Dosage Temazepam MEDISPAN [address]-01 30 mg Orally Once a day Active 1 capsule at bedtime as needed Social History Social History Element Qualifiers Date Reported Flu Vaccine: . 2013June 21, 2014 Ethnicity . Status , Is kittitian your primary language? Yes June 21, 2014 [...] 2014 Occupation: . Disabled June 21, 2014 Summary Purpose eClinicalWorks Submission
--- OUTSIDE RECORDS SUMMARY | 2018-08-26 18:41 | XMS REPORT ---
Author Author Alek Sweeney [facility] eClinicalWorks Address Unknown Phone Unavailable Care Team Providers Care Classifications Officer Cc/Cm Name Role Phone Alek Sweeney Unavailable Allergies, Adverse Reactions, Alerts Substance Reaction Event Type Iodine hives Non Drug Allergy Codeine Info Not Available Non Drug Allergy Plastic adhesive tape Info Not Available Non Drug Allergy Cortisone Celestone Elevated blood pressure Non Drug Allergy Penicillin hives Non Drug Allergy Morphine Info Not Available Non Drug Allergy Problems Problem Type Condition Code Onset Dates Condition Status Problem Rheumatoid arthritis M06.9 Active Problem Polyarthritis M13.0 Active Problem Osteopenia M85.80 Active Assessment Polyarthritis M13.0 Active Assessment Osteopenia M85.80 Active Assessment Rheumatoid arthritis M06.9 Active Medications Medication Code System Code Instructions Start Date End Date Status Dosage Vitamin B6 [facility] 46489546952 100 MG Orally Once a day Active 1 tablet Levothyroxine Sodium [facility] 71118957064 125 MCG Orally Once a day Active 1 tablet on an empty stomach in the morning Tumeric NDC 0 300 MG Orally Once a day Active 1 capsule Propranolol HCl [facility] 25290912898 80 MG Orally Twice a day Active 1 tablet Tizanidine HCl [facility] 77655211631 4 MG Orally Three times a day Active 1 capsule as needed Folic Acid ND 01581701280 1 MG Orally Once a day Jan 04, 2018 Active 1 tablet Gabapentin [facility] 80007452990 600 MG Orally Once a day Active 1 tablet Humira [facility] 73304407584 40 MG/0.4ML Subcutaneous Feb 02, 2018 Active 0.4 ml Vitamin D3 [facility] 89200815776 2000 UNIT Orally Once a day Active 1 capsule Biotin [facility] 66498226047 5000 MCG Orally Once a day Active 1 capsule Alendronate Sodium [facility] 92063550298 35 MG Orally once a week Jan 04, 2018 Active 1 tablet Temazepam ND 67502715801 30 MG Orally Once a day Active 1 capsule at bedtime as needed Maxalt [facility] 95087503699 10 MG Orally Once a day Active 1 tablet as needed one time Phenytoin Sodium [facility] [address]-50 100 MG Orally daily Active 1 capsule Levothyroxine Sodium [facility] 13374093548 100 MCG Orally Once a day Active 1 tablet on an empty stomach in the morning Spironolactone [facility] 08743696815 25 MG Orally Once a day Active 1 tablet with food Methotrexate NDC 0 2.5mg Orally Once a week Jan 04, 2018 Active 8 tablets Calcium 600+D [facility] 48287229479 600-800 MG-UNIT Orally Once a day Active 1 tablet with a meal Omeprazole [facility] 05882158278 40 MG Orally Once a day Active 1 capsule Metoprolol Tartrate [facility] 83079833095 25 MG Orally Twice a day Active 1 tablet with food Hydrocodone-Acetaminophen [facility] 05897892249 7.5-325 MG Orally every 6 hrs Active 1 tablet as needed Vitamin B12 [facility] 37938947858 2500 MCG Orally Active as directed Hydroxychloroquine Sulfate [facility] 34863679257 200 MG Orally bid Jan 04, 2018 Feb 02, 2018 Inactive 1 tablet with food or milk Furosemide [facility] 10566460027 20 MG Orally Once a day Active 1 tablet Vital Signs Date/Time: Feb 02, 2018 BMI 29.94 Index Weight 153.3 lbs Height 60 in Temperature 97.7 F Cardiac Monitoring Heart Rate 60 /min Blood Pressure Diastolic 70 mm Hg Blood Pressure Systolic 102 mm Hg Results Name Result Date Reference Range Unit Abnormality Flag COCCIDIOIDES IMMITIS AB BY ID ----COCCIDIOIDES IMMITIS AB BY ID None Detected [id number] None Detected SEDIMENTATION RATE ----SEDIMENTATION RATE 21 [id number] 0-20 MM/HOUR H QUANTIFERON TB GOLD ---- JEAN-NIL >10.00 [id number] >=0.5 IU/ML ----QUANTIFERON TB GOLD NEGATIVE [id number] NEGATIVE ----INTERFERON GAMMA RESULTS [id number] ---- NIL 0.10 88021570 <=8.0 IU/ML ---- TB-NIL 0.06 [id number] <0.35 IU/ML HISTOPLASMA SPP. AB BY ID ----HISTOPLASMA SPP. AB BY ID None Detected [id number] None Detected HIGH SENSITIVITY CRP ----HIGH SENSITIVITY CRP 14.1 [id number] SEE BELOW MG/L H ACUTE HEPATITIS PROFILE ----HEPATITIS B SURF AG NON-REACTIVE [id number] NON-REACTIVE ----HEPATITIS B CORE IgM NON-REACTIVE [id number] NON-REACTIVE ----INTERPRETATION HEPATITIS A: (NOTE) [id number] ----HEPATITIS C ANTIBODY NON-REACTIVE [id number] NON-REACTIVE ----INTERPRETATION HEPATITIS C: (NOTE) [id number] ----INTERPRETATION HEPATITIS B: (NOTE) [id number] ----HEPATITIS A IgM NON-REACTIVE [id number] NON-REACTIVE Summary Purpose eClinicalWorks Submission
--- OUTSIDE RECORDS SUMMARY | 2018-08-26 18:41 | XMS REPORT ---
Author Grabiel Kenney Organization eClinicalWorks Address Unknown Phone Unavailable Care Team Providers Care Overhead Crane Inspector Name Role Phone Grabiel Ortiz CP Unavailable Allergies No Known Allergies Problems Problem Type Condition Code Onset Dates Condition Status Problem Rheumatoid arthritis M06.9 Active Problem Polyarthritis M13.0 Active Problem Osteopenia M85.80 Active Medications No Known Medications Results No Known Results Summary Purpose eClinicalWorks Submission
--- OUTSIDE RECORDS SUMMARY | 2018-08-26 18:41 | XMS REPORT ---
Author Grabiel Kenney Organization eClinicalWorks Address Unknown Phone Unavailable Care Team Providers Care Neurology Technologist Name Role Phone Grabiel Ortiz CP Unavailable Allergies No Known Allergies Problems Problem Type Condition Code Onset Dates Condition Status Problem Rheumatoid arthritis M06.9 Active Problem Polyarthritis M13.0 Active Problem Osteopenia M85.80 Active Medications Medication Code System Code Instructions Start Date End Date Status Dosage Humira [facility] 21969486519 40 MG/0.4ML Subcutaneous q 2 weeks Apr 09, 2018 July 08, 2018 Active 0.4 ml Results No Known Results Summary Purpose eClinicalWorks Submission
--- OUTSIDE RECORDS SUMMARY | 2018-08-26 18:41 | XMS REPORT ---
Author Author Nu Lowe [facility] eClinicalWorks Address Unknown Phone Unavailable Care Team Providers Care Manager In Home Name Role Phone Nu Lowe CP Unavailable Encounters Encounter Location Date Update Demographics - Personal Info [facility] May 08, 2014 Update Demographics - Additional Info [facility] May 10, 2014 Mamagram Request [facility] May 08, 2014 2 WEEK FOLLOW UP [facility] May 15, 2014 DEVELOPMENT TECHNICAL LEAD-EST PCP [facility] May 01, 2014 Mamagram request [facility] May 08, 2014 Update Demographics - Additional Info [facility] May 08, 2014 [...] 01, 2014 Ethnicity . Status , Is cymraes your primary language? Yes May 01, 2014 [...]
--- OUTSIDE RECORDS SUMMARY | 2018-08-26 18:41 | XMS REPORT ---
Author Grabiel Kenney Organization eClinicalWorks Address Unknown Phone Unavailable Care Team Providers Care Ophthalmology Technician Name Role Phone Grabiel Ortiz CP Unavailable Allergies No Known Allergies Problems Problem Type Condition Code Onset Dates Condition Status Problem Rheumatoid arthritis M06.9 Active Problem Polyarthritis M13.0 Active Problem Osteopenia M85.80 Active Medications No Known Medications Results No Known Results Summary Purpose eClinicalWorks Submission
--- OUTSIDE RECORDS SUMMARY | 2018-08-26 18:41 | XMS REPORT ---
Author Author Nu Mitchell [facility] eClinicalWorks Address Unknown Phone Unavailable Care Team Providers Care Senior Care Assistant Name Role Phone Nu Mitchell Unavailable Encounters Encounter Location Date Update Demographics - Personal Info [facility] May 08, 2014 Update Demographics - Additional Info [facility] May 10, 2014 Mamagram Request [facility] May 08, 2014 2 WEEK FOLLOW UP [facility] May 15, 2014 BARREL BURNER-EST PCP [facility] May 01, 2014 Mamagram request [facility] May 08, 2014 Update Demographics - Additional Info [facility] May 08, 2014 New Appointment Request [facility] May 26, 2014 New Refill Request [facility] May 26, 2014 Medication Refills [facility] May 26, 2014 New Appointment Request [facility] Dec 15, 2014 medication [facility] May 16, 2015 New Refill Request [facility] September 18, 2014 New Refill Request [facility] Dec 15, 2014 Refill [facility] May 30, 2014 SICK [facility] June 21, 2014 [...] 21, 2014 Ethnicity . Status , Is sinhala your primary language? Yes June 21, 2014 [...]
--- OUTSIDE RECORDS SUMMARY | 2018-08-26 18:41 | XMS REPORT ---
Author Grabiel Kenney Organization eClinicalWorks Address Unknown Phone Unavailable Care Team Providers Care Wood Boat Builder Supervisor Name Role Phone Grabiel Ortiz CP Unavailable Allergies No Known Allergies Problems Problem Type Condition Code Onset Dates Condition Status Problem Rheumatoid arthritis M06.9 Active Problem Polyarthritis M13.0 Active Problem Osteopenia M85.80 Active Medications No Known Medications Results No Known Results Summary Purpose eClinicalWorks Submission
--- OUTSIDE RECORDS SUMMARY | 2018-08-26 18:41 | XMS REPORT | Summary of Care ---
Author Organization Unknown Address Unknown Phone Unavailable Encounter [facility] Encntr_luis(FIN) [id number] Date(s): 06/14/14 - 06/14/14 [facility] [place] [address] [place] [address] [facility] [phone] Discharge Disposition: Home Physician Attending: Nu Lawrence DO Vital Signs No data available for [...] Refusal Reason influenza virus vaccine, inactivated 02/12/10 Procedures No data available for this section Social History No data available for this section Assessment and Plan No data available for this section
--- OUTSIDE RECORDS SUMMARY | 2018-08-26 18:41 | XMS REPORT ---
Author Grabiel Kenney Organization eClinicalWorks Address Unknown Phone Unavailable Care Team Providers Care Coupling Machine Operator Name Role Phone Grabiel Ortiz CP Unavailable Allergies No Known Allergies Problems Problem Type Condition Code Onset Dates Condition Status Problem Rheumatoid arthritis M06.9 Active Problem Polyarthritis M13.0 Active Problem Osteopenia M85.80 Active Medications No Known Medications Results No Known Results Summary Purpose eClinicalWorks Submission
--- OUTSIDE RECORDS SUMMARY | 2018-08-26 18:41 | XMS REPORT | Summary of Care ---
Author Author [facility] [place] Organization [facility] [place] Address Unknown Phone Unavailable Encounter [facility] Derrickntr_luis(FIN) [id number] Date(s): 08/24/17 - 08/24/17 [facility] [place] [address] [place] [phone] Discharge Disposition: Home or Self Care Attending [...]
--- OUTSIDE RECORDS SUMMARY | 2018-08-26 18:41 | XMS REPORT ---
Author Author Alek Sweeney [facility] eClinicalWorks Address Unknown Phone Unavailable Care Team Providers Care Pediatrician Name Role Phone Alek Sweeney Unavailable Allergies, [...] Type Condition Code Onset Dates Condition Status Assessment Polyarthritis M13.0 Active Assessment Hand pain, right M79.641 Active Problem Polyarthritis M13.0 Active Assessment Hand pain, left M79.642 Active Medications Medication Code System Code Instructions Start Date End Date Status Dosage Levothyroxine Sodium [facility] 00012127884 100 MCG Orally Once a day Active 1 tablet on an empty stomach in the morning Hydrocodone-Acetaminophen ND 93415250467 7.5-325 MG Orally every 6 hrs Active 1 tablet as needed Omeprazole ND 50157956321 40 MG Orally Once a day Active 1 capsule PredniSONE ND 0 5 MG Orally Once a day November 06, 2017 Mar 06, 2018 Active 1 tab Biotin ND 59645636154 5000 MCG Orally Once a day Active 1 capsule Maxalt [facility] 38915888203 10 MG Orally Once a day Active 1 tablet as needed one time Celebrex [facility] 41504145007 100 MG Orally Twice a day November 06, 2017 Inactive 1 capsule with food Spironolactone ND 46254292001 25 MG Orally Once a day Active 1 tablet with food Hydroxychloroquine Sulfate ND 89991749076 200 MG Orally bid November 06, 2017 Mar 06, 2018 Active 1 tablet with food or milk Vitamin B12 [facility] 86821009051 2500 MCG Orally Active as directed Tizanidine HCl ND 11552461246 4 MG Orally Three times a day Active 1 capsule as needed Propranolol HCl [facility] 10636264475 80 MG Orally Twice a day Active 1 tablet Metoprolol Tartrate [facility] 85189437849 25 MG Orally Twice a day Active 1 tablet with food Gabapentin [facility] 37908515091 600 MG Orally Once a day Active 1 tablet Vitamin B6 [facility] 32049693568 100 MG Orally Once a day Active 1 tablet Vitamin D3 [facility] 06042348783 2000 UNIT Orally Once a day Active 1 capsule Temazepam [facility] 21019994615 30 MG Orally Once a day Active 1 capsule at bedtime as needed Furosemide [facility] 59549729267 20 MG Orally Once a day Active 1 tablet Tumeric NDC 0 300 MG Orally Once a day Active 1 capsule Vital Signs Date/Time: November 06, 2017 BMI 27.92 Index Weight 143 lbs Height 60 in Temperature 99.0 F Cardiac Monitoring Heart Rate 64 /min Blood Pressure Diastolic 68 mm Hg Blood Pressure Systolic 118 mm Hg Results No Known Results Summary Purpose eClinicalWorks Submission
--- OUTSIDE RECORDS SUMMARY | 2018-08-26 18:41 | XMS REPORT ---
Author Author Nu Lowe [facility] eClinicalWorks Address Unknown Phone Unavailable Care Team Providers Care Hyperion Analyst Name Role Phone Nu Lowe CP Unavailable Allergies, Adverse Reactions, Alerts Substance Reaction Event Type Adhesive Tape rash Drug Allergy penicillin hives Drug Allergy Vancomycin HCl hives Drug Allergy Morphine Sulfate rash Drug Allergy Iodine hives Drug Allergy Codeine Sulfate anaphylaxis Drug Allergy Encounters Encounter Location Date Update Demographics - Personal Info [facility] May 08, 2014 Update Demographics - Additional Info [facility] May 10, 2014 Mamagram Request [facility] May 08, 2014 2 WEEK FOLLOW UP [facility] May 15, 2014 PURLER-EST PCP [facility] May 01, 2014 Mamagram request [facility] May 08, 2014 Update Demographics - Additional Info [facility] May 08, [...] 242.00 Active Problem Hypothyroid 244.9 Active Assessment Hypothyroid 244.9 Active Problem DDD (degenerative disc disease) 722.6 Active Assessment Gastroenteritis 558.9 Active Problem Bladder incontinence 788.30 Active Assessment Hyperlipidemia 272.4 Active Problem Multiple environmental allergies V15.09 Active Medications Medication Code System Code Instructions Start Date End Date Status Dosage Vitamin B-12 [facility] [address]-97 2500 MCG Sublingual Active Unknown Nexium [facility] [address]-46 20 MG Orally Once a day Active 1 capsule Maxalt [facility] [address]-76 10 MG Orally Once a day Active 1 tablet as needed one time Simvastatin [facility] [address]-80 40 MG Orally Once a day Active 1 tablet in the evening Montelukast Sodium [facility] [address]-99 10 MG Orally Once a day Active 1 tablet in the evening Estradiol [facility] [address]-36 0.5 MG Orally Once a day Active 1 tablet Levothyroxine Sodium [facility] [address]-01 125 MCG Orally Once a day Active 1 tablet [place] [facility] [address]-06 7.5-325 MG Orally every 6 hrs Active 1 tablet as needed Gabapentin [facility] [address]-07 300 MG Orally Three times a day Active 1 capsule Propranolol HCl [facility] [address]-11 80 MG Orally Active Unknown Levocetirizine Dihydrochloride [facility] [address]-57 5 MG Orally Once a day Active 1 tablet in the evening Methocarbamol [facility] [address]-19 750 MG Orally every 8 hrs Active 1 tablet Biotin 5000 [facility] [address]68 5 MG Orally Once a day Active 1 capsule Vitamin D3 [facility] [address]-38 2000 UNIT Orally Active Unknown Sucralfate [facility] [address]-95 1 GM Orally once a day Active 1 tablet on an empty stomach Hyoscyamine Sulfate [facility] [address]-49 0.125 MG Orally every 4 hrs Active 1 tablet before meals as needed Detrol LA [facility] [address]-97 4 MG Orally Once a day Active 1 capsule Meloxicam [facility] [address]-92 7.5 MG Orally Once a day Active 1 tablet Temazepam [facility] [address]-47 30 MG Orally Once a day Active 1 capsule at bedtime as needed Social History Social History Element Qualifiers Date Reported Flu Vaccine: . 2013May 15, 2014 Ethnicity . Status , Is hebrew your primary language? Yes May 15, 2014 Where or with whom do you live ? . Spouse and children May 15, 2014 Depression Screening: . negative May 15, 2014 Tobacco Use: . Are you a: never smoker May 15, 2014 Marital Status: . Abhishek May 15, 2014 Caffeine intake? . Status: Yes, What type: Coffee, 1 cup a day May 15, 2014 Do you exercise? . Answer: Yes, Type: walking May 15, 2014 Do you drink alcohol? . Status: Yes, Type: Wine, How often? Rarely, How much? Socially May 15, 2014 Occupation: . Disabled May 15, 2014 Family history Qualifier Description Comment Date Reported Father lung cancer May 15, 2014 Paternal Grandmother Comment not available May 15, 2014 Mother Comment not available May 15, 2014 Siblings alive paternal grandmother cancer 1 sister lung cancer daughter - obesity May 15, 2014 Paternal Grandfather Comment not available May 15, 2014 Vital Signs Date/Time: May 15, 2014 Weight 182 lbs Height 60 in Cardiac Monitoring Heart Rate 80 /min Blood Pressure Diastolic 76 mm Hg Blood Pressure Systolic 128 mm Hg Summary Purpose eClinicalWorks Submission
--- OUTSIDE RECORDS SUMMARY | 2018-08-26 18:41 | XMS REPORT ---
Author Author Alek Sweeney [facility] eClinicalWorks Address Unknown Phone Unavailable Care Team Providers Care Warp Dresser Name Role Phone Alek Sweeney Unavailable Allergies, [...] M85.80 Active Assessment Rheumatoid arthritis M06.9 Active Assessment Polyarthritis M13.0 Active Medications Medication Code System Code Instructions Start Date End Date Status Dosage Vitamin D3 [facility] 80509661443 2000 UNIT Orally Once a day Active 1 capsule Vitamin B6 [facility] 01423376488 100 MG Orally Once a day Active 1 tablet Propranolol HCl ND 04057821629 80 MG Orally Twice a day Active 1 tablet Omeprazole ND 91274150868 40 MG Orally Once a day Active 1 capsule Furosemide ND 07702191614 20 MG Orally Once a day Active 1 tablet Gabapentin ND 65718575529 600 MG Orally Once a day Active 1 tablet Spironolactone ND 49459036137 25 MG Orally Once a day Active 1 tablet with food Biotin [facility] 60618260171 5000 MCG Orally Once a day Active 1 capsule Tumeric NDC 0 300 MG Orally Once a day Active 1 capsule Alendronate Sodium ND 77982712368 35 MG Orally once a week Dec 10, 2017 Apr 09, 2018 Active 1 tablet Temazepam ND 96778791066 30 MG Orally Once a day Active 1 capsule at bedtime as needed Metoprolol Tartrate ND 68789723708 25 MG Orally Twice a day Active 1 tablet with food Vitamin B12 ND 32697548751 2500 MCG Orally Active as directed PredniSONE NDC 0 5 MG Orally Once a day Dec 10, 2017 Inactive 1 tab Hydroxychloroquine Sulfate [facility] 97312162126 200 MG Orally bid Active 1 tablet with food or milk Hydrocodone-Acetaminophen ND 46292806010 7.5-325 MG Orally every 6 hrs Active 1 tablet as needed Tizanidine HCl ND 25768630062 4 MG Orally Three times a day Active 1 capsule as needed Maxalt [facility] 91940508347 10 MG Orally Once a day Active 1 tablet as needed one time Phenytoin Sodium [facility] [address]-74 100 MG Orally daily Active 1 capsule Folic Acid [facility] 79993128832 1 MG Orally Once a day Dec 10, 2017 Apr 09, 2018 Active 1 tablet Methotrexate NDC 0 2.5mg Orally Once a week Dec 10, 2017 Apr 09, 2018 Active 4 tabs x 1wk, 6tabs x1wk and then take 8 tabs Levothyroxine Sodium [facility] 37620370835 100 MCG Orally Once a day Active 1 tablet on an empty stomach in the morning Vital Signs Date/Time: Dec 10, 2017 BMI 28.06 Index Weight 143.7 lbs Height 60 in Temperature 98.3 F Cardiac Monitoring Heart Rate 64 /min Blood Pressure Diastolic 60 mm Hg Blood Pressure Systolic 112 mm Hg Results No Known Results Summary Purpose eClinicalWorks Submission
--- OUTSIDE RECORDS SUMMARY | 2018-08-26 18:41 | XMS REPORT ---
Author Author Alek Sweeney Organization eClinicalWorks Address Unknown Phone Unavailable Care Team Providers Care Stem Roller Operator Name Role Phone Alek Sweeney CP Unavailable Allergies No Known Allergies Problems Problem Type Condition Code Onset Dates Condition Status Problem Rheumatoid arthritis M06.9 Active Problem Polyarthritis M13.0 Active Problem Osteopenia M85.80 Active Assessment Rheumatoid arthritis M06.9 Active Medications Medication Code System Code Instructions Start Date End Date Status Dosage Folic Acid NDC 14774753125 1 MG Orally Once a day Dec 10, 2017 Jan 10, 2018 Active 1 tablet Methotrexate NDC 0 2.5mg Orally Once a week Dec 10, 2017 Jan 10, 2018 Active 4 tabs x 1wk, 6tabs x1wk and then take 8 tabs Results No Known Results Summary Purpose eClinicalWorks Submission
--- OUTSIDE RECORDS SUMMARY | 2018-08-26 18:41 | XMS REPORT ---
Author Author Nu Lowe [facility] eClinicalWorks Address Unknown Phone Unavailable Care Team Providers Care Grocery Clerk Marking Name Role Phone Nu Lowe CP Unavailable Encounters Encounter Location Date Update Demographics - Personal Info [facility] May 08, 2014 Update Demographics - Additional Info [facility] May 10, 2014 Mamagram Request [facility] May 08, 2014 2 WEEK FOLLOW UP [facility] May 15, 2014 GEAR AND SPLINE GRINDER-EST PCP [facility] May 01, 2014 Mamagram request [facility] May 08, 2014 Update Demographics - Additional Info [facility] May 08, 2014 [...] 01, 2014 Ethnicity . Status , Is mozambican your primary language? Yes May 01, 2014 [...]
--- OUTSIDE RECORDS SUMMARY | 2018-08-26 18:41 | XMS REPORT ---
Author Author Nu Lowe [facility] eClinicalWorks Address Unknown Phone Unavailable Care Team Providers Care Parking Cashier Name Role Phone Mynor Nu CP Unavailable Allergies, Adverse Reactions, Alerts Substance Reaction Event Type Adhesive Tape rash Drug Allergy penicillin hives Drug Allergy Vancomycin HCl hives Drug Allergy Morphine Sulfate rash Drug Allergy Iodine hives Drug Allergy Codeine Sulfate anaphylaxis Drug Allergy Encounters Encounter Location Date CIRCULATION ANALYST-EST PCP [facility] May 01, 2014 Problems Problem Type Condition ICD-9 Code Onset Dates Condition Status Assessment Migraines 346.90 Active Assessment Hypothyroid 244.9 Active Assessment GERD (gastroesophageal reflux disease) 530.81 Active Assessment Visit for screening mammogram V76.12 Active Assessment Menopausal and postmenopausal disorder 627.9 Active Assessment Routine general medical examination at a health care facility V70.0 Active Assessment Chronic back pain 724.5 Active Assessment Graves disease 242.00 Active Assessment Body Mass Index 33.0-33.9, adult V85.33 Active Assessment Obesity 278.00 Active Assessment Multiple environmental allergies V15.09 Active Assessment Asthma 493.90 Active Assessment DDD (degenerative disc disease) 722.6 Active Assessment Hyperlipemia 272.4 Active Assessment Bladder incontinence 788.30 Active Assessment Insomnia 780.52 Active Social History Social History Element Qualifiers Date Reported Flu Vaccine: . 2013May 01, 2014 Ethnicity . Status , Is setswana your primary language? Yes May 01, 2014 [...] 2014 Occupation: . Disabled May 01, 2014 Vital Signs Date/Time: May 01, 2014 Weight 173 lbs Height 60 in Cardiac Monitoring Heart Rate 80 /min Blood Pressure Diastolic 80 mm Hg Blood Pressure Systolic 128 mm Hg Summary Purpose eClinicalWorks Submission
--- OUTSIDE RECORDS SUMMARY | 2018-08-26 18:41 | XMS REPORT ---
Author Author Alek Sweeney Organization eClinicalWorks Address Unknown Phone Unavailable Care Team Providers Care Banquet Prep Cook Name Role Phone Alek Sweeney CP Unavailable Allergies No Known Allergies Problems Problem Type Condition Code Onset Dates Condition Status Problem Rheumatoid arthritis M06.9 Active Problem Polyarthritis M13.0 Active Problem Osteopenia M85.80 Active Medications No Known Medications Results No Known Results Summary Purpose eClinicalWorks Submission
--- OUTSIDE RECORDS SUMMARY | 2018-08-26 18:41 | XMS REPORT ---
Author Grabiel Kenney Organization eClinicalWorks Address Unknown Phone Unavailable Care Team Providers Care Vacuum Pan Tender Name Role Phone Grabiel Ortiz CP Unavailable Allergies No Known Allergies Problems Problem Type Condition Code Onset Dates Condition Status Problem Rheumatoid arthritis M06.9 Active Problem Polyarthritis M13.0 Active Problem Osteopenia M85.80 Active Medications No Known Medications Results No Known Results Summary Purpose SIPphone[employer]Ateo Submission
--- OUTSIDE RECORDS SUMMARY | 2018-08-26 18:41 | XMS REPORT | Summary of Care ---
Author Author [facility] [place] Organization [facility] [place] Address Unknown Phone Unavailable Encounter HQ [email or web address]_[email or web address](FIN) [id number] Date(s): 02/06/17 - 02/06/17 [facility] [place] [address] [phone] Discharge Disposition: Home or Self Care Attending [...]
[2018-08-26 20:17] LABS: BILIRUBIN,URINE NEGATIVE (NEGATIVE); CLARITY,URINE CLEAR (CLEAR); COLOR,URINE YELLOW (YELLOW); KETONES,URINE NEGATIVE (NEGATIVE); LEUKOCYTE ESTERASE ,URINE TRACE (NEGATIVE); NITRITE,URINE NEGATIVE (NEGATIVE); PROTEIN,URINE DIPSTICK NEGATIVE (NEGATIVE); URINE UROBILINOGEN 1 mg/dL (0.2 - 1)
[2018-08-26 20:25] LABS: BACTERIA,URINE MODERATE /HPF; EPITHELIAL CELLS,URINE FEW /LPF; RBC,URINE 0-5 /HPF (0-5)
--- NOTE | 2018-08-26 20:25 | NUR ---
ZULY FUELS ENGINEER IN TRIAGE TO SEE PT; PT NOW C/O RIGHT SIDED PAIN
[2018-08-26] MEDS ORDERED: IBUPROFEN 600 MG TAB PO ONE (20:30)
--- NOTE | 2018-08-26 21:52 | Diagnostic Imaging Report ---
EXAMINATION: PA and lateral views of the chest. COMPARISON: None CLINICAL HISTORY: Shell and shakes, right-sided chest pain when taking a deep breath DISCUSSION: Lines/tubes: None. Lungs: Lungs are relatively well-inflated. No consolidation or pulmonary edema. Pleura: There is no pleural effusion or pneumothorax. Heart and mediastinum: Cardiomediastinal silhouette is unremarkable. Pulmonary vasculature is normal. Bones and soft tissues: No acute bony abnormalities. Multiple metallic curvilinear densities project in the left upper quadrant. Cholecystectomy clips. IMPRESSION: No acute cardiopulmonary abnormalities. Signed by: Dr. Castro Mata M.D. on 08/26/2018 9:48 PM
[2018-08-26] MEDS ORDERED: BACTRIM DS TAB1 EACH PO (22:01)
== END 2018-08-26 22:14 | disposition home or self-care (01) ==
LOC: ER 18:36
DX: R30.0 Dysuria (principal); N30.90 Cystitis, unspecified without hematuria; E78.5 Hyperlipidemia, unspecified
CPT/HCPCS: 71046; 81001; 99283

== ENCOUNTER 2018-09-06 10:58 | Emergency (ER) | payer MEDICARE, OTHER ==
[~2018-09-06] VITALS: Ht 152.4 cm; Wt 79.4 kg
[~2018-09-06 10:58] MED LIST changes: +BACTRIM DS TAB1 EACH PO
--- OUTSIDE RECORDS SUMMARY | 2018-09-06 11:02 | XMS REPORT ---
Author Author Alek Sweeney [facility] eClinicalWorks Address Unknown Phone Unavailable Care Team Providers Care Tanbark Laborer Name Role Phone Alek Sweeney CP Unavailable Allergies, Adverse Reactions, Alerts Substance Reaction Event Type Penicillin hives Non Drug Allergy Morphine Info Not Available Non Drug Allergy Iodine hives Non Drug Allergy Codeine Info Not Available Non Drug Allergy Plastic adhesive tape Info Not Available Non Drug Allergy Cortisone [place] Elevated blood pressure Non Drug Allergy Problems Problem Type Condition Code Onset Dates Condition Status Problem Rheumatoid arthritis M06.9 Active Problem Polyarthritis M13.0 Active Problem Osteopenia M85.80 Active Assessment Osteopenia M85.80 Active Assessment Rheumatoid arthritis M06.9 Active Medications Medication Code System Code Instructions Start Date End Date Status Dosage Atorvastatin Calcium ND 38532054381 20 MG Orally Once a day Active 1 tablet Methotrexate ND 56086578959 2.5mg Orally Once a week Jan 04, 2018 Active 8 tablets Furosemide ND 82191324485 20 MG Orally Once a day Active 1 tablet Vitamin D3 ND 54607686987 2000 UNIT Orally Once a day Active 1 capsule Levothyroxine Sodium ND 57580325585 125 MCG Orally Once a day Active 1 tablet on an empty stomach in the morning Hydrocodone-Acetaminophen ND 27255530400 7.5-325 MG Orally every 6 hrs Active 1 tablet as needed Folic Acid ND 24594449619 1 MG Orally Once a day Jan 04, 2018 Active 1 tablet Spironolactone ND 68763193536 25 MG Orally Once a day Active 1 tablet with food Temazepam ND 76928929539 30 MG Orally Once a day Active 1 capsule at bedtime as needed Maxalt ND 30712381922 10 MG Orally Once a day Active 1 tablet as needed one time Metoprolol Tartrate ND 14694204690 25 MG Orally Twice a day Active 1 tablet with food Tizanidine HCl ND 45469688119 4 MG Orally Three times a day Active 1 capsule as needed Propranolol HCl ND 05642399236 80 MG Orally Twice a day Active 1 tablet Gabapentin [facility] 89862019373 600 MG Orally Once a day Active 1 tablet Omeprazole [facility] 62533582861 40 MG Orally Once a day Active 1 capsule Calcium 600+D [facility] 45126855137 600-800 MG-UNIT Orally Once a day Active 1 tablet with a meal Enbrel Mini [facility] 83323956092 50 MG/ML Subcutaneous qwkly July 21, 2018 Active 1 ml Alendronate Sodium [facility] 56611325818 35 MG Orally once a week Jan 04, 2018 Active 1 tablet Vital Signs Date/Time: August 19, 2018 BMI 30.09 Index Weight 149.0 lbs Height 59 in Temperature 97.2 F Cardiac Monitoring Heart Rate 52 /min Blood Pressure Diastolic 60 mm Hg Blood Pressure Systolic 118 mm Hg Results No Known Results Summary Purpose eClinicalWorks Submission
--- OUTSIDE RECORDS SUMMARY | 2018-09-06 11:02 | XMS REPORT | Continuity of Care Document ---
Author Author [facility] Interface Address Unknown Phone Unavailable Problems Problem Status Onset Date Classification Date Reported Comments Source Z12.31 - ENCNTR SCREEN MAMMOGRAM FOR MA Active 02/06/2017 [facility] V76.12 - SCREEN MAMMOGRA Active 05/15/2014 [facility] Migraines Active Problem 05/23/2015 [facility] Rheumatoid arthritis Active Problem 08/27/2018 Sourav Ortiz Polyarthritis Active Problem 08/27/2018 Sourav Ortiz Osteopenia Active Problem 08/27/2018 Sourav Ortiz Hand pain, right Active Diagnosis 11/11/2017 Sourav Ortiz Hand pain, left Active Diagnosis 11/11/2017 Sourav Ortiz Depression Active Diagnosis 06/27/2014 [facility] Asthma Active Problem 07/29/2012 [facility] Bronchitis Active Problem 07/29/2012 [facility] Eczema Active Problem 07/29/2012 [facility] Hemorrhoids Active Problem 07/29/2012 [facility] Migraine Active Problem 07/29/2012 [facility] Osteoarthritis Active Problem 07/29/2012 [facility] Reflux Active Problem 07/29/2012 [facility] Sinusitis Active Problem 07/29/2012 [facility] Thyroid disease Active Problem 07/29/2012 [facility] Asthma Active Problem 08/27/2017 [facility] Bronchitis Active Problem 08/27/2017 [facility] Eczema Active Problem 08/27/2017 [facility] Hemorrhoids Active Problem 08/27/2017 [facility] Migraine Active Problem 08/27/2017 [facility] Osteoarthritis Active Problem 08/27/2017 [facility] Reflux Active Problem 08/27/2017 [facility] Sinusitis Active Problem 08/27/2017 [facility] Thyroid disease Active Problem 08/27/2017 [facility] Medications Medication Details Route Status Patient Instructions [...] by mouth Once a day [place] 11/26/2014 [facility] Escitalopram Oxalate 1 tablet Orally Active 10 mg Orally Once a day [place] 06/21/2014 [facility] influenza virus vaccine, inactivated 0.5 ml, Route: IM, Drug Form: INJ, Start date: 02/12/10 9:00:00, Stop date: 02/12/10 9:00:00 IM No Longer Active SYSTEM 02/12/2010 [facility] Vitamin B-12 Unknown Sublingual Active 2500 MCG [...] MG Orally Once a day [facility] Estradiol 1 tablet Orally Active 0.5 MG Orally Once a day [facility] Levothyroxine Sodium 1 tablet Orally Active 125 MCG Orally Once a day [facility] Willcox 1 tablet as needed Orally Active 7.5-325 MG Orally every 6 hrs [facility] Gabapentin 1 capsule Orally Active 300 MG Orally Three times a day [facility] Propranolol HCl Unknown Orally Active 80 MG Orally [facility] Levocetirizine Dihydrochloride 1 tablet in the evening Orally Active 5 MG Orally Once a day [facility] Methocarbamol 1 tablet Orally Active 750 MG Orally every 8 hrs [facility] Biotin 5000 1 capsule Orally Active 5 MG Orally Once a day [facility] Vitamin D3 Unknown Orally Active 2000 UNIT Orally [facility] Sucralfate 1 tablet on an empty stomach Orally Active 1 GM Orally once a day [facility] Hyoscyamine Sulfate 1 tablet before meals as needed Orally Active 0.125 MG Orally every 4 hrs [facility] Detrol LA 1 capsule Orally Active 4 MG Orally Once a day [facility] Meloxicam 1 tablet Orally Active 7.5 MG Orally Once a day [facility] Temazepam 1 capsule at bedtime as needed Orally Active 30 mg Orally Once a day [facility] Levothyroxine Sodium [...] Active 2000 UNIT Orally Once a day Sourav Ortiz Temazepam 1 capsule at bedtime [...] Iodine Adverse Reaction hives Adverse Reaction Active 08/19/2018 Sourav Ortiz Plastic adhesive tape Adverse Reaction Info Not Available Adverse Reaction Active 08/19/2018 Sourav Ortiz Cortisone Celestone Adverse Reaction Elevated blood pressure Adverse Reaction Active 08/19/2018 Sourav Ortiz Penicillin Adverse Reaction hives Adverse Reaction Active 08/19/2018 Sourav Ortiz Morphine Adverse Reaction Info Not Available Adverse Reaction Active 08/19/2018 Sourav Ortiz Codeine Adverse Reaction Info Not Available Adverse Reaction Active 08/19/2018 Sourav Ortiz penicillin Assertion Drug allergy Active [facility] iodinated radiocontrast dyes Assertion Drug allergy Active [facility] iodine topical Assertion Drug allergy Active [facility] morphine Assertion Drug allergy Active [facility] Tape Assertion Drug allergy Active [facility] vancomycin Assertion Propensity to adverse reactions to substance Active [facility] Immunizations Immunization Date Given Site Status Last Updated Comments Source influenza virus vaccine, inactivated 02/12/2010 completed Anuna [facility] influenza virus vaccine, inactivated 02/12/2010 Left deltoid completed An[facility] Results Order Name Results Value Reference Range [...] mammogram, 07/27/2012 mammogram, and 07/09/2011 mammogram - [facility]. TECHNIQUE: Mammographic views were obtained using [...] is recommended.(08/25/2018) This exam was interpreted at [id number] for [place], SL 15. Professional services are provided by the [facility] of Diagnostic Imaging. Violet Parker M.D., ms/geovany:08/24/2017 11:06:30 Director Of Undergraduate Admissions(s): Teri Bonilla RT(R)(M), [facility] letter sent: BI-RADS 1/2 Mammogram BI-RADS: [...] mammogram, 05/26/2014 mammogram, and 07/27/2012 mammogram - [facility]. Color flow and real-time ultrasound of [...] Diagnostic Imaging. Aki Wong M.D. cm/:03/04/2017 14:09:59 Director Of Undergraduate Admissions(s): Cintia Schwartz [facility] letter sent: BI-RADS 3 Ultrasound BI-RADS: [...] mammogram, 07/09/2011 mammogram, and 06/25/2010 mammogram - [facility]. TECHNIQUE: Mammographic views were obtained using [...] is recommended. This exam was interpreted at [id number] for KERMIT Lowery. Aki Wong M.D. cm/penrad:03/04/2017 13:57:59 Director Of Undergraduate Admissions(s): Teri Bonilla RT(R)(M), [facility] letter sent: BI-RADS 0 Mammogram BI-RADS: 0 Indeterminate 03/04/2017 - - Read by: Manuel Deluca MD Dictated Date/time: 03/04/17 13:57 Electronically Signed by: Manuel Deluca MD 03/04/17 13:57 FINAL [facility] J[facility]AN incl CAD [place] Breast Mammo Scrn JUAN incl CAD MA BILATERAL DIGITAL SCREENING MAMMOGRAM WITH CAD: 02/06/2017 CLINICAL: Routine/Screening. Current study was evaluated with a Computer Aided Detection (CAD) system. COMPARISON:Comparison is made to exams dated: 06/14/2014 mammogram, 05/26/2014 mammogram, and 07/27/2012 mammogram - [facility]. TECHNIQUE: Mammographic views were obtained using [...] are recommended. This exam was interpreted at [id number] at [facility]. SUMMARY: The staff from [facility] will contact the patient to schedule the additional studies. A separate report will be issued following interpretation of the additional studies. An order for a bilateral ultrasound is requested, in the event it is needed, day of diagnostic. Hortensia Ag M.D. kg/penrad:02/10/2017 08:39:29 Director Of Undergraduate Admissions(s): Chica Calderon RT(R)(M), [facility] letter sent: BI-RADS 0 Mammogram BI-RADS: [...] mammogram, 07/27/2012 mammogram and 05/26/2014 mammogram - [facility]. There are scattered fibroglandular densities in [...] time of the exam. Alexy ahmadi/penrad:06/14/2014 11:17:55 Director Of Undergraduate Admissions: Aspen Mcgill RT(R)(M), [facility] This exam was dictated and interpreted [facility] [id number] [facility] sent: Normal exam Mammogram BI-RADS: 2 [...] mammogram, 07/27/2012 mammogram and 05/26/2014 mammogram - [facility]. There are scattered fibroglandular densities in [...] time of the exam. Alexy ahmadi/penrad:06/14/2014 11:17:55 Director Of Undergraduate Admissions: Aspen MCKEON(Alix)(Pete), [facility] This exam was dictated and interpreted by [id number] for KERMIT Lowery. letter sent: Normal exam [...] mammogram, 07/09/2011 mammogram and 07/27/2012 mammogram - [facility]. There are scattered fibroglandular densities in [...] SUMMARY: The patient will be contacted by [facility] to return for further imaging. Attempts to contact the patient should also be made by the referring physician in the event that we are unsuccessful. Dr. Farzana Christopher D.O. ht/penrad:05/26/2014 14:39:15 Director Of Undergraduate Admissions: Chica HANDLEY)(Pete), [facility] This exam was dictated and interpreted by [id number] for KERMIT Grier. letter sent: Additional Imaging Mammogram BI-RADS: 0 Indeterminate 05/26/2014 - - Read by: Farzana Christopher DO Dictated Date/time: 05/26/14 14:39 Electronically Signed by: Farzana Christopher DO 05/26/14 14:39 FINAL REPORT KERMIT Lowery Vital Signs Vital Sign Value Date Comments Source Weight 149.0 08/19/2018 Sourav Ortiz Height 59 08/19/2018 Sourav Ortiz Temperature Oral (F) 97.2 F 08/19/2018 Sourav Ortiz Heart Rate 52 08/19/2018 Sourav Otriz Diastolic (mm Hg) 60 08/19/2018 Sourav Ortiz Systolic (mm Hg) 118 08/19/2018 Sourav Ortiz Weight 156.8 07/12/2018 Sourav Ortiz Height 59 [...] Sourav Ortiz Diastolic (mm Hg) 70 02/02/2018 Suorav Ortiz Systolic (mm Hg) 102 02/02/2018 Sourav [...] Provider ADM Date DC Date Status Source [facility] SUPPORT COORDINATOR-EST PCP [id number] 05/01/2014 05/01/2014 [facility] SUPPORT COORDINATOR-EST PCP [id number] 05/01/2014 05/01/2014 [facility] SUPPORT COORDINATOR-EST PCP [id number] 05/01/2014 05/01/2014 [facility] SUPPORT COORDINATOR-EST PCP [id number] 05/01/2014 05/01/2014 [facility] SUPPORT COORDINATOR-EST PCP [id number] 05/01/2014 05/01/2014 [facility] SUPPORT COORDINATOR-EST PCP [id number] 05/01/2014 05/01/2014 [facility] SUPPORT COORDINATOR-EST PCP [id number] 05/01/2014 05/01/2014 [facility] SUPPORT COORDINATOR-EST PCP [id number] 05/01/2014 05/01/2014 [facility] Update Demographics - Personal Info [id number] 05/08/2014 05/08/2014 [facility] Update Demographics - Personal Info [id number] 05/08/2014 05/08/2014 [facility] Update Demographics - Additional Info [id number] 05/08/2014 05/08/2014 [facility] Update Demographics - Additional Info [id number] 05/08/2014 05/08/2014 [facility] Mamagram request [id number] 05/08/2014 05/08/2014 [facility] Mamagram request [id number] 05/08/2014 05/08/2014 [facility] Update Demographics - Personal Info [id number] 05/08/2014 05/08/2014 [facility] Update Demographics - Personal Info [id number] 05/08/2014 05/08/2014 [facility] Update Demographics - Personal Info [id number] 05/08/2014 05/08/2014 [facility] Update Demographics - Personal Info [id number] 05/08/2014 05/08/2014 [facility] Update Demographics - Personal Info [id number] 05/08/2014 05/08/2014 [facility] Update Demographics - Additional Info [id number] 05/08/2014 05/08/2014 [facility] Update Demographics - Additional Info [id number] 05/08/2014 05/08/2014 [facility] Update Demographics - Additional Info [id number] 05/08/2014 05/08/2014 [facility] Update Demographics - Additional Info [id number] 05/08/2014 05/08/2014 [facility] Update Demographics - Additional Info [id number] 05/08/2014 05/08/2014 [facility] Mamagram request [id number] 05/08/2014 05/08/2014 [facility] Mamagram request [id number] 05/08/2014 05/08/2014 [facility] Mamagram request [id number] 05/08/2014 05/08/2014 [facility] Mamagram request [id number] 05/08/2014 05/08/2014 [facility] Mamagram request [id number] 05/08/2014 05/08/2014 [facility] Mamagram Request [id number] 05/08/2014 05/08/2014 [facility] Mamagram Request [id number] 05/08/2014 05/08/2014 [facility] Mamagram Request [id number] 05/09/2014 05/09/2014 [facility] Mamagram Request [id number] 05/09/2014 05/09/2014 [facility] Mamagram Request [id number] 05/09/2014 05/09/2014 [facility] Mamagram Request [id number] 05/09/2014 05/09/2014 [facility] Update Demographics - Additional Info [id number] 05/10/2014 05/10/2014 [facility] Update Demographics - Additional Info [id number] 05/10/2014 05/10/2014 [facility] Update Demographics - Additional Info [id number] 05/10/2014 05/10/2014 [facility] Update Demographics - Additional Info [id number] 05/10/2014 05/10/2014 [facility] Update Demographics - Additional Info [id number] 05/10/2014 05/10/2014 [facility] Update Demographics - Additional Info [id number] 05/10/2014 05/10/2014 [facility] 2 WEEK FOLLOW UP [id number] 05/15/2014 05/15/2014 [facility] 2 WEEK FOLLOW UP [id number] 05/15/2014 05/15/2014 [facility] 2 WEEK FOLLOW UP [id number] 05/15/2014 05/15/2014 [facility] 2 WEEK FOLLOW UP [id number] 05/15/2014 05/15/2014 [facility] 2 WEEK FOLLOW UP [id number] 05/15/2014 05/15/2014 [facility] 2 WEEK FOLLOW UP [id number] 05/15/2014 05/15/2014 [facility] [place] [id number] Nu [place] 05/26/2014 05/27/2014 KERMIT Lowery [facility] New Refill Request [id number] 05/26/2014 05/26/2014 [facility] New Refill Request [id number] 05/26/2014 05/26/2014 [facility] Medication Refills [id number] 05/26/2014 05/26/2014 [facility] Medication Refills [id number] 05/26/2014 05/26/2014 [facility] New Appointment Request [id number] 05/26/2014 05/26/2014 [facility] New Appointment Request [id number] 05/26/2014 05/26/2014 [facility] New Refill Request [id number] 05/27/2014 05/27/2014 [facility] Medication Refills [id number] 05/27/2014 05/27/2014 [facility] New Appointment Request [id number] 05/27/2014 05/27/2014 [facility] Refill [id number] 05/30/2014 05/30/2014 [facility] Refill [id number] 05/30/2014 05/30/2014 [facility] Refill [id number] 05/30/2014 05/30/2014 [facility] Outpatient Imaging - [place] [facility] [id number] Nu GonzalezSidra 06/14/2014 06/15/2014 [facility] [place] [facility] SICK [id number] 06/21/2014 06/21/2014 [facility] SICK [id number] 06/21/2014 06/21/2014 [facility] SICK [id number] 06/21/2014 06/21/2014 [facility] New Refill Request [id number] 09/18/2014 09/18/2014 [facility] New Refill Request [id number] 09/18/2014 09/18/2014 [facility] New Refill Request [id number] 12/16/2014 12/16/2014 [facility] New Refill Request [id number] 12/16/2014 12/16/2014 [facility] New Appointment Request [id number] 12/16/2014 12/16/2014 [facility] medication [id number] 05/16/2015 05/16/2015 [facility] Outpatient [facility] [place] [facility] [id number] Ryley Juarez 02/06/2017 02/07/2017 [facility] [place] [facility] [id number] Ryley Juarez 03/04/2017 03/05/2017 [facility] Outpatient [facility] - [place] [facility] [id number] Ryley Juarez 08/24/2017 08/25/2017 [facility] Procedures Procedure Code Date Perfomer Comments Source
--- OUTSIDE RECORDS SUMMARY | 2018-09-06 11:03 | XMS REPORT ---
Author [facility] Address Unknown Phone Unavailable Care Team Providers Care Money Room Supervisor Name Role Phone Brissa JORGE Unavailable Unavailable Problems This patient has no known problems. Allergies, Adverse Reactions, Alerts This patient has no known allergies or adverse reactions. Medications This patient has no known medications. Results Test Description Test Time Test Comments Text Results Atomic Results Result Comments CHEST 2 VIEWS 2018-08-26 21:47:00 [place] [id number] [place] [id number] Patient Name: CAROL COOMBS MR #: [id number] : 1955 Age/Sex: 62/F Req #: [id number] Adm Physician: Ordered by: TED PARKINSON MD Report #: [id number] Location: ER Room/Bed: Procedure: [id number] DX/CHEST 2 VIEWS Exam Date: 08/26/18 Exam Time: 2110 REPORT STATUS: Signed EXAMINATION: PA and lateral views of the chest. C OMPARISON: None CLINICAL HISTORY: Shell and shakes, right-sided chest pain when taking a deep breath DISCUSSION: Lines/tubes: None. Lungs: Lungs are relatively well-inflated. No consolidation or pulmonary edema. Pleura: There is no pleural effusion or pneumothorax. Heart and mediastinum: Cardiomediastinal silhouette is unremarkable. Pulmonary vasculature is normal. Bones and soft tissues: No acute bony abnormalities. Multiple metallic curvilinear densities project in the left upper quadrant. Cholecystectomy clips. IMPRESSION: No acute cardiopulmonary abnormalities. Signed by: Dr. Carlton Mata M.D. on 08/26/2018 9:48 PM Dictated By: CARLTON MATA MD 45 Transcribed By: BRIGHT on 08/26/182147 COPY TO: TED PARKINSON MD
[2018-09-06] MEDS ORDERED: CEFTRIAXONE SOD 1 GM VIAL IM ONE (11:45)
[2018-09-06 12:28] LABS: BILIRUBIN,URINE NEGATIVE (NEGATIVE); CLARITY,URINE CLEAR (CLEAR); COLOR,URINE YELLOW (YELLOW); KETONES,URINE NEGATIVE (NEGATIVE); NITRITE,URINE POSITIVE (NEGATIVE); PROTEIN,URINE DIPSTICK NEGATIVE (NEGATIVE); URINE UROBILINOGEN 0.2 mg/dL (0.2 - 1)
[2018-09-06 12:29] LABS: LEUKOCYTE ESTERASE ,URINE TRACE (NEGATIVE)
[2018-09-06] MEDS ORDERED: LIDOCAINE HCL 1% LOCAL INJ 20 ML VIAL INJ ONE (12:30)
[2018-09-06 12:55] LABS: BACTERIA,URINE FEW /HPF; EPITHELIAL CELLS,URINE FEW /LPF
[2018-09-06 13:02] VITALS: BP 131/72
== END 2018-09-06 13:05 | disposition home or self-care (01) ==
LOC: ER 10:58
DX: N30.00 Acute cystitis without hematuria (principal); Z88.5 Allergy status to narcotic agent; Z88.0 Allergy status to penicillin; Z91.048 Other nonmedicinal substance allergy status; E03.9 Hypothyroidism, unspecified; E78.5 Hyperlipidemia, unspecified
CPT/HCPCS: 81001; 87086; 87186; 99283; J0696; J2001

== ENCOUNTER 2020-05-15 14:27 | Inpatient (IN) | payer MEDICARE, OTHER ==
[~2020-05-15] VITALS: Ht 152.4 cm; Wt 79.4 kg
[2020-05-15] MEDS ORDERED: ASPIRIN 81 MG CHEW TAB PO ONE (15:00)
[2020-05-15 15:16] LABS: BASOPHILS # (AUTO) 0.1 (0.0-0.1); BASOPHILS % 0.8 % (0.0-1.0); EOSINOPHILS # (AUTO) 0.1 (0.0-0.4); EOSINOPHILS % 2.3 % (0.0-6.0); HEMATOCRIT 31.5 % (34.2-44.1); HEMOGLOBIN 10.6 g/dL (12.0-16.0); LYMPHOCYTES # (AUTO) 2.9 (1.0-3.2); LYMPHOCYTES % 46.1 % (18.0-39.1); MEAN CORPUSCULAR HEMOGLOBIN 30.2 pg (28-32); MEAN CORPUSCULAR HGB CONC 33.7 g/dL (31-35); MEAN CORPUSCULAR VOLUME 89.7 fL (81-99); MONOCYTES # (AUTO) 0.6 (0.2-0.8); MONOCYTES % 10.3 % (4.4-11.3); NEUTROPHILS # (AUTO) 2.5 (2.1-6.9); NEUTROPHILS % 39.9 % (38.7-80.0); PLATELET COUNT 240 x10e3/uL (140-360); RED BLOOD COUNT 3.51 x10e6/uL (3.6-5.1); RED CELL DISTRIBUTION WIDTH 15.2 % (11.7-14.4)
[2020-05-15 15:35] LABS: ALANINE AMINOTRANSFERASE 25 IU/L (0-55); ALBUMIN 1.8 g/dL (3.5-5.0); ALBUMIN/GLOBULIN RATIO 0.6 (0.8-2.0); ALKALINE PHOSPHATASE 138 IU/L (40-150); ANION GAP 11.2 mmol/L (8-16); BLOOD UREA NITROGEN 14 mg/dL (7-26); BUN/CREATININE RATIO 16 (6-25); CALCIUM 7.6 mg/dL (8.4-10.2); CARBON DIOXIDE 24 mmol/L (22-29); CHLORIDE 92 mmol/L (98-107); CREATINE KINASE 113 IU/L (29-168); CREATININE, SERUM 0.87 mg/dL (0.57-1.11); EST GLOMERULAR FILTRATION RATE > 60 ML/MIN (60-); GLUCOSE 61 mg/dL (74-118); POTASSIUM 4.2 mmol/L (3.5-5.1); SODIUM 123 mmol/L (136-145)
[2020-05-15 16:16] LABS: CLARITY,URINE CLOUDY (CLEAR); LEUKOCYTE ESTERASE ,URINE SMALL (NEGATIVE); NITRITE,URINE POSITIVE (NEGATIVE)
[2020-05-15 16:17] LABS: COLOR,URINE STRAW (YELLOW); KETONES,URINE NEGATIVE (NEGATIVE); PROTEIN,URINE DIPSTICK NEGATIVE (NEGATIVE); URINE UROBILINOGEN 1 mg/dL (0.2 - 1)
[2020-05-15 16:41] LABS: BACTERIA,URINE MANY /HPF; WBC,URINE (MAN) 0-5 /HPF (0-5)
[2020-05-15] MEDS ORDERED: HYDRALAZINE HCL 20 MG/ML VIAL IV PRN (17:30)
[2020-05-15] MEDS ORDERED: TEMAZEPAM 7.5 MG CAP PO PRN (17:30)
[2020-05-15] MEDS ORDERED: ONDANSETRON HCL INJ 2MG/ML 2ML 2 MG/ML VIAL IV PRN (17:30)
[2020-05-15] MEDS ORDERED: ACETAMINOPHEN 325 MG TAB PO PRN (17:30)
[2020-05-15] MEDS ORDERED: POLYETHYLENE GLYCOL 3350 17 GM PACK PO PRN (17:30)
[2020-05-15 21:41] VITALS: BP 129/72
[2020-05-15 21:48] VITALS: BP 129/72
[2020-05-15] MEDS ORDERED: CALCIUM 600 +1 EAC2 PO (22:40)
[2020-05-15] MEDS ORDERED: CALCIUM + VITA1 EACH (22:40)
[2020-05-15] MEDS ORDERED: VITAMIN B-1100 M1 PO (22:41)
[2020-05-15] MEDS ORDERED: VITAMIN B6 PO (22:43)
[2020-05-15] MEDS ORDERED: VITAMIN B-121000 MCG PO (22:43)
[2020-05-15] MEDS ORDERED: TROSPIUM CHLORI20 MG PO (22:57)
[2020-05-15] MEDS ORDERED: ATORVASTATIN CA20 MG PO (22:57)
[2020-05-15] MEDS ORDERED: LEVOTHYROXINE88 MCG PO (22:57)
[2020-05-15] MEDS ORDERED: TOPIRAMATE25 MG PO (22:57)
[2020-05-15] MEDS ORDERED: BIOTIN2500 MCG PO (22:57)
[2020-05-15] MEDS ORDERED: ASPIRIN EC81 MG PO (22:57)
[2020-05-15] MEDS ORDERED: NEURONTIN400 MG PO (22:57)
[2020-05-15] MEDS ORDERED: POTASSIUM99 M1 PO (22:57)
[2020-05-15] MEDS ORDERED: METOPROLOL SUCC25 MG PO (22:57)
[2020-05-15] MEDS ORDERED: SPIRONOLACTONE25 MG PO (22:57)
[2020-05-15] MEDS ORDERED: ULTRAM 50MG50 MG PO (22:57)
[2020-05-15] MEDS ORDERED: MAXALT10 MG PO (22:57)
[2020-05-15] MEDS ORDERED: LASIX20 MG PO (22:57)
[2020-05-15] MEDS ORDERED: OMEPRAZOLE40 MG PO (22:57)
[2020-05-15] MEDS ORDERED: TIZANIDINE HCL4 MG PO (22:57)
[2020-05-15] MEDS ORDERED: ENBREL MIN50 MG/1 ML INJ (23:05)
[2020-05-15] MEDS ORDERED: ACARBOSE25 MG PO (23:05)
[2020-05-15] MEDS: SODIUM CHLORIDE 0.9% 1000ML 1,000 ML IV SCH (23:15)
[2020-05-15] MEDS ORDERED: ATORVASTATIN 20 MG TAB PO SCH (23:30)
[2020-05-15] MEDS ORDERED: METOPROLOL SUCCINATE 25 MG TAB XL PO SCH (23:30)
[2020-05-15] MEDS ORDERED: GABAPENTIN 400 MG CAP PO SCH (23:30)
[2020-05-15] MEDS: CEFTRIAXONE SOD 1 GM/NS 50 ML 50 ML IV SCH (23:45)
[2020-05-15] MEDS: TEMAZEPAM 15 MG CAP PO PRN (23:45)
[2020-05-15 23:49] VITALS: BP 113/80
[2020-05-16] VITALS (7 sets, daily range): BP systolic 92–125; BP diastolic 50–65
[2020-05-16] MEDS ORDERED: TRAMADOL HCL 50 MG TAB PO PRN
[2020-05-16] MEDS ORDERED: HYDROCODONE/APAP 7.5MG-325MG 1 EA TAB PO SCH
[2020-05-16] MEDS: SODIUM CHLORIDE 0.9% 1000ML 1,000 ML IV SCH (00:23)
[2020-05-16 05:46] LABS: BASOPHILS % 0.7 % (0.0-1.0); EOSINOPHILS # (AUTO) 0.1 (0.0-0.4); EOSINOPHILS % 1.8 % (0.0-6.0); HEMATOCRIT 25.8 % (34.2-44.1); HEMOGLOBIN 8.7 g/dL (12.0-16.0); LYMPHOCYTES # (AUTO) 1.7 (1.0-3.2); LYMPHOCYTES % 38.2 % (18.0-39.1); MEAN CORPUSCULAR HEMOGLOBIN 30.3 pg (28-32); MEAN CORPUSCULAR HGB CONC 33.7 g/dL (31-35); MEAN CORPUSCULAR VOLUME 89.9 fL (81-99); MONOCYTES # (AUTO) 0.6 (0.2-0.8); MONOCYTES % 12.7 % (4.4-11.3); NEUTROPHILS % 45.9 % (38.7-80.0); PLATELET COUNT 192 x10e3/uL (140-360); RED BLOOD COUNT 2.87 x10e6/uL (3.6-5.1); RED CELL DISTRIBUTION WIDTH 15.4 % (11.7-14.4)
[2020-05-16 06:14] LABS: ANION GAP 14.8 mmol/L (8-16); BLOOD UREA NITROGEN 11 mg/dL (7-26); BUN/CREATININE RATIO 15 (6-25); CALCIUM 7.1 mg/dL (8.4-10.2); CARBON DIOXIDE 22 mmol/L (22-29); CHLORIDE 102 mmol/L (98-107); CREATININE, SERUM 0.73 mg/dL (0.57-1.11); EST GLOMERULAR FILTRATION RATE > 60 ML/MIN (60-); POTASSIUM 3.8 mmol/L (3.5-5.1); SODIUM 135 mmol/L (136-145)
[2020-05-16 06:17] LABS: GLUCOSE 54 mg/dL (74-118)
[2020-05-16 06:40] LABS: CHOLESTEROL 58 MD/DL (0-199); MAGNESIUM 1.3 MG/DL (1.3-2.1); PHOSPHORUS 3.8 MG/DL (2.3-4.7); TRIGLYCERIDES 116 MG/DL (0-149)
[2020-05-16] MEDS: LEVOTHYROXINE SODIUM 88 MCG TAB PO SCH (06:41)
[2020-05-16 06:55] LABS: HDL CHOLESTEROL < 5 MG/DL (40-60); LDL CHOLESTEROL 30 MG/DL (60-130)
[2020-05-16 07:04] LABS: THYROID STIMULATING HORMONE 0.038 uIU/mL (0.350-4.940)
[2020-05-16] MEDS ORDERED: FAMOTIDINE 20 MG TAB PO SCH (07:30)
[2020-05-16] MEDS ORDERED: DEXTROSE 5%/0.45% SOD CHL 1,000 ML IV SCH (07:30)
[2020-05-16] MEDS: TIZANIDINE HCL 4 MG TAB PO SCH (08:30)
[2020-05-16] MEDS: ASPIRIN 81 MG ENTERIC COATED PO SCH (08:30)
[2020-05-16] MEDS: GABAPENTIN 400 MG CAP PO SCH ×4 (08:30→21:09)
[2020-05-16] MEDS: PANTOPRAZOLE SOD 40 MG TABEC PO SCH (08:30)
[2020-05-16] MEDS: PYRIDOXINE HCL 50 MG TAB PO SCH (08:30)
[2020-05-16] MEDS: HYDROCODONE/APAP 7.5MG-325MG 1 EA TAB PO SCH ×2 (08:30→21:09)
[2020-05-16] MEDS: CYANOCOBALAMIN 1,000 MCG TAB PO SCH (08:30)
[2020-05-16] MEDS: OYST-CAL-D 500MG TABLET PO SCH ×2 (08:30→18:08)
[2020-05-16] MEDS ORDERED: THIAMINE HCL 100 MG TAB PO SCH (09:00)
[2020-05-16] MEDS: TROSPIUM CHLORIDE 60 MG PO SCH (09:00)
[2020-05-16] MEDS: NON-FORMULARY MEDICATION (Biotin 5,000 MCG) PO SCH (09:00)
[2020-05-16] MEDS: DOCUSATE SODIUM 100 MG CAP PO SCH ×2 (09:00→17:00)
[2020-05-16] MEDS ORDERED: MAGNESIUM SULFATE 2GM/50ML 50 ML IV ONE ×2 (09:30→11:30)
[2020-05-16] MEDS: DEXTROSE 5%/0.9% SOD CHL 1,000 ML IV SCH (10:46)
[2020-05-16] MEDS: AZITHROMYCIN 500MG/NS 250 ML 250 ML IV SCH (15:04)
[2020-05-16] MEDS: ACARBOSE 25 MG PO SCH (17:00)
[2020-05-16] MEDS: FOLIC ACID 1 MG TAB PO SCH (18:08)
[2020-05-16] MEDS: TOPIRAMATE 25 MG TAB PO SCH (21:09)
[2020-05-16] MEDS: ATORVASTATIN 20 MG TAB PO SCH (21:09)
[2020-05-16] MEDS: METOPROLOL SUCCINATE 25 MG TAB XL PO SCH (21:09)
[2020-05-16] MEDS: CEFTRIAXONE SOD 1 GM/NS 50 ML 50 ML IV SCH (21:10)
[2020-05-16] MEDS: TEMAZEPAM 15 MG CAP PO PRN (22:45)
[2020-05-17] VITALS (8 sets, daily range): BP systolic 92–115; BP diastolic 51–74
[2020-05-17 05:07] LABS: BASOPHILS % 0.7 % (0.0-1.0); EOSINOPHILS # (AUTO) 0.1 (0.0-0.4); HEMATOCRIT 22.4 % (34.2-44.1); HEMOGLOBIN 7.8 g/dL (12.0-16.0); LYMPHOCYTES # (AUTO) 2.4 (1.0-3.2); LYMPHOCYTES % 54.1 % (18.0-39.1); MEAN CORPUSCULAR HEMOGLOBIN 31.5 pg (28-32); MEAN CORPUSCULAR HGB CONC 34.8 g/dL (31-35); MEAN CORPUSCULAR VOLUME 90.3 fL (81-99); MONOCYTES # (AUTO) 0.7 (0.2-0.8); MONOCYTES % 15.3 % (4.4-11.3); NEUTROPHILS # (AUTO) 1.2 (2.1-6.9); NEUTROPHILS % 27.2 % (38.7-80.0); PLATELET COUNT 179 x10e3/uL (140-360); RED BLOOD COUNT 2.48 x10e6/uL (3.6-5.1)
[2020-05-17 05:31] LABS: ALANINE AMINOTRANSFERASE 17 IU/L (0-55); ALBUMIN 1.4 g/dL (3.5-5.0); ALBUMIN/GLOBULIN RATIO 0.6 (0.8-2.0); ALKALINE PHOSPHATASE 102 IU/L (40-150); ANION GAP 10.4 mmol/L (8-16); BLOOD UREA NITROGEN 5 mg/dL (7-26); BUN/CREATININE RATIO 7 (6-25); CARBON DIOXIDE 23 mmol/L (22-29); CHLORIDE 109 mmol/L (98-107); CREATININE, SERUM 0.67 mg/dL (0.57-1.11); EST GLOMERULAR FILTRATION RATE > 60 ML/MIN (60-); GLUCOSE 104 mg/dL (74-118); POTASSIUM 3.4 mmol/L (3.5-5.1); SODIUM 139 mmol/L (136-145)
[2020-05-17 05:32] LABS: CALCIUM 6.5 mg/dL (8.4-10.2)
[2020-05-17] MEDS: DEXTROSE 5%/0.9% SOD CHL 1,000 ML IV SCH ×2 (06:13→21:57)
[2020-05-17] MEDS: GABAPENTIN 400 MG CAP PO SCH ×6 (07:06→20:49)
[2020-05-17] MEDS: LEVOTHYROXINE SODIUM 88 MCG TAB PO SCH (07:06)
[2020-05-17] MEDS: ACARBOSE 25 MG PO SCH ×3 (08:00→17:00)
[2020-05-17] MEDS: NON-FORMULARY MEDICATION (Biotin 5,000 MCG) PO SCH (09:00)
[2020-05-17] MEDS: TROSPIUM CHLORIDE 60 MG PO SCH (09:00)
[2020-05-17] MEDS: DOCUSATE SODIUM 100 MG CAP PO SCH ×2 (09:17→17:10)
[2020-05-17] MEDS: ASPIRIN 81 MG ENTERIC COATED PO SCH (09:17)
[2020-05-17] MEDS: PANTOPRAZOLE SOD 40 MG TABEC PO SCH (09:17)
[2020-05-17] MEDS: OYST-CAL-D 500MG TABLET PO SCH ×2 (09:17→17:10)
[2020-05-17] MEDS: HYDROCODONE/APAP 7.5MG-325MG 1 EA TAB PO SCH ×2 (09:17→20:49)
[2020-05-17] MEDS: TIZANIDINE HCL 4 MG TAB PO SCH (09:18)
[2020-05-17] MEDS: CYANOCOBALAMIN 1,000 MCG TAB PO SCH (09:18)
[2020-05-17] MEDS: THIAMINE HCL 100 MG TAB PO SCH (09:18)
[2020-05-17] MEDS: PYRIDOXINE HCL 50 MG TAB PO SCH (09:18)
[2020-05-17] MEDS ORDERED: CALCIUM GLUCONATE 10% INJ 4.65 MEQ in SODIUM CHLORIDE 0.9% 50ML 50 ML IV ONE (11:00)
[2020-05-17] MEDS ORDERED: GABAPENTIN 400 MG CAP PO ONE (11:15)
[2020-05-17] MEDS: AZITHROMYCIN 500MG/NS 250 ML 250 ML IV SCH (14:04)
[2020-05-17] MEDS: FOLIC ACID 1 MG TAB PO SCH (17:10)
[2020-05-17] MEDS: METOPROLOL SUCCINATE 25 MG TAB XL PO SCH (20:42)
[2020-05-17] MEDS: ATORVASTATIN 20 MG TAB PO SCH (20:49)
[2020-05-17] MEDS: TOPIRAMATE 25 MG TAB PO SCH (20:49)
[2020-05-17] MEDS: CEFTRIAXONE SOD 1 GM/NS 50 ML 50 ML IV SCH (21:46)
[2020-05-17] MEDS: TEMAZEPAM 15 MG CAP PO PRN (22:54)
[2020-05-18] VITALS (8 sets, daily range): BP systolic 92–125; BP diastolic 51–72
[2020-05-18] MEDS: DEXTROSE 5%/0.9% SOD CHL 1,000 ML IV SCH ×2 (00:11→08:39)
[2020-05-18] MEDS: LEVOTHYROXINE SODIUM 88 MCG TAB PO SCH (05:27)
[2020-05-18 06:44] LABS: BASOPHILS % 0.9 % (0.0-1.0); EOSINOPHILS # (AUTO) 0.1 (0.0-0.4); HEMATOCRIT 23.4 % (34.2-44.1); HEMOGLOBIN 7.7 g/dL (12.0-16.0); LYMPHOCYTES # (AUTO) 2.6 (1.0-3.2); LYMPHOCYTES % 59.8 % (18.0-39.1); MEAN CORPUSCULAR HGB CONC 32.9 g/dL (31-35); MEAN CORPUSCULAR VOLUME 94.4 fL (81-99); MONOCYTES # (AUTO) 0.6 (0.2-0.8); NEUTROPHILS % 22.4 % (38.7-80.0); PLATELET COUNT 190 x10e3/uL (140-360); RED BLOOD COUNT 2.48 x10e6/uL (3.6-5.1); RED CELL DISTRIBUTION WIDTH 16.6 % (11.7-14.4)
[2020-05-18 07:24] LABS: ANION GAP 11.3 mmol/L (8-16); BLOOD UREA NITROGEN 5 mg/dL (7-26); BUN/CREATININE RATIO 8 (6-25); CARBON DIOXIDE 21 mmol/L (22-29); CHLORIDE 111 mmol/L (98-107); CREATININE, SERUM 0.65 mg/dL (0.57-1.11); EST GLOMERULAR FILTRATION RATE > 60 ML/MIN (60-); GLUCOSE 81 mg/dL (74-118); MAGNESIUM 1.6 MG/DL (1.3-2.1); POTASSIUM 3.3 mmol/L (3.5-5.1); SODIUM 140 mmol/L (136-145)
[2020-05-18 07:26] LABS: CALCIUM 6.8 mg/dL (8.4-10.2)
[2020-05-18] MEDS: ACARBOSE 25 MG PO SCH ×3 (08:00→16:37)
[2020-05-18] MEDS: PANTOPRAZOLE SOD 40 MG TABEC PO SCH (08:25)
[2020-05-18] MEDS: ASPIRIN 81 MG ENTERIC COATED PO SCH (08:26)
[2020-05-18] MEDS: CYANOCOBALAMIN 1,000 MCG TAB PO SCH (08:26)
[2020-05-18] MEDS: GABAPENTIN 400 MG CAP PO SCH ×4 (08:26→21:50)
[2020-05-18] MEDS: OYST-CAL-D 500MG TABLET PO SCH ×2 (08:27→16:40)
[2020-05-18] MEDS: PYRIDOXINE HCL 50 MG TAB PO SCH (08:27)
[2020-05-18] MEDS: THIAMINE HCL 100 MG TAB PO SCH (08:27)
[2020-05-18] MEDS: DOCUSATE SODIUM 100 MG CAP PO SCH ×2 (08:38→17:00)
[2020-05-18] MEDS: HYDROCODONE/APAP 7.5MG-325MG 1 EA TAB PO SCH ×2 (08:39→21:50)
[2020-05-18] MEDS: TIZANIDINE HCL 4 MG TAB PO SCH (08:39)
[2020-05-18] MEDS: TROSPIUM CHLORIDE 60 MG PO SCH (09:00)
[2020-05-18] MEDS: NON-FORMULARY MEDICATION (Biotin 5,000 MCG) PO SCH (09:00)
[2020-05-18] MEDS ORDERED: CALCIUM GLUCONATE 10% INJ 4.65 MEQ in SODIUM CHLORIDE 0.9% 50ML 50 ML IV ONE (13:00)
[2020-05-18] MEDS ORDERED: POTASSIUM CHLORIDE 20 MEQ TAB CR PO ONE (13:00)
[2020-05-18] MEDS: MEROPENEM 500MG/ NS 50ML 50 ML IV SCH ×2 (13:22→22:06)
[2020-05-18] MEDS: FOLIC ACID 1 MG TAB PO SCH (16:40)
[2020-05-18] MEDS ORDERED: DEXTROSE 50% SYRINGE 50 ML IV PRN (19:30)
[2020-05-18] MEDS: METOPROLOL SUCCINATE 25 MG TAB XL PO SCH (21:50)
[2020-05-18] MEDS: ATORVASTATIN 20 MG TAB PO SCH (21:50)
[2020-05-18] MEDS: TOPIRAMATE 25 MG TAB PO SCH (21:50)
[2020-05-18] MEDS: TEMAZEPAM 15 MG CAP PO PRN (23:58)
[2020-05-19] VITALS (8 sets, daily range): BP systolic 105–129; BP diastolic 56–74
[2020-05-19] MEDS: DEXTROSE 5%/0.9% SOD CHL 1,000 ML IV SCH ×2 (03:44→14:29)
[2020-05-19] MEDS: MEROPENEM 500MG/ NS 50ML 50 ML IV SCH ×3 (05:20→22:00)
[2020-05-19] MEDS: LEVOTHYROXINE SODIUM 88 MCG TAB PO SCH (05:20)
[2020-05-19 06:53] LABS: BASOPHILS % 0.8 % (0.0-1.0); EOSINOPHILS # (AUTO) 0.2 (0.0-0.4); EOSINOPHILS % 3.4 % (0.0-6.0); HEMATOCRIT 31.5 % (34.2-44.1); HEMOGLOBIN 9.9 g/dL (12.0-16.0); LYMPHOCYTES # (AUTO) 2.9 (1.0-3.2); LYMPHOCYTES % 60.6 % (18.0-39.1); MEAN CORPUSCULAR HEMOGLOBIN 30.6 pg (28-32); MEAN CORPUSCULAR HGB CONC 31.4 g/dL (31-35); MEAN CORPUSCULAR VOLUME 97.2 fL (81-99); MONOCYTES # (AUTO) 0.4 (0.2-0.8); NEUTROPHILS # (AUTO) 1.2 (2.1-6.9); NEUTROPHILS % 26.1 % (38.7-80.0); PLATELET COUNT 196 x10e3/uL (140-360); RED BLOOD COUNT 3.24 x10e6/uL (3.6-5.1); RED CELL DISTRIBUTION WIDTH 16.7 % (11.7-14.4)
[2020-05-19 07:15] LABS: ANION GAP 10.3 mmol/L (8-16); BLOOD UREA NITROGEN 5 mg/dL (7-26); BUN/CREATININE RATIO 8 (6-25); CALCIUM 7.3 mg/dL (8.4-10.2); CARBON DIOXIDE 18 mmol/L (22-29); CHLORIDE 115 mmol/L (98-107); CREATININE, SERUM 0.62 mg/dL (0.57-1.11); EST GLOMERULAR FILTRATION RATE > 60 ML/MIN (60-); GLUCOSE 63 mg/dL (74-118); MAGNESIUM 1.6 MG/DL (1.3-2.1); PHOSPHORUS 2.3 MG/DL (2.3-4.7); POTASSIUM 4.3 mmol/L (3.5-5.1); SODIUM 139 mmol/L (136-145)
[2020-05-19] MEDS: ACARBOSE 25 MG PO SCH ×3 (08:00→18:12)
[2020-05-19] MEDS: TROSPIUM CHLORIDE 60 MG PO SCH (08:12)
[2020-05-19] MEDS: NON-FORMULARY MEDICATION (Biotin 5,000 MCG) PO SCH (08:12)
[2020-05-19] MEDS: ASPIRIN 81 MG ENTERIC COATED PO SCH (08:13)
[2020-05-19] MEDS: GABAPENTIN 400 MG CAP PO SCH ×4 (08:14→21:00)
[2020-05-19] MEDS: THIAMINE HCL 100 MG TAB PO SCH (08:15)
[2020-05-19] MEDS: HYDROCODONE/APAP 7.5MG-325MG 1 EA TAB PO SCH ×2 (08:15→21:00)
[2020-05-19] MEDS: OYST-CAL-D 500MG TABLET PO SCH ×2 (08:15→18:10)
[2020-05-19] MEDS: PANTOPRAZOLE SOD 40 MG TABEC PO SCH (08:16)
[2020-05-19] MEDS: PYRIDOXINE HCL 50 MG TAB PO SCH (08:16)
[2020-05-19] MEDS: CYANOCOBALAMIN 1,000 MCG TAB PO SCH (08:16)
[2020-05-19] MEDS: TIZANIDINE HCL 4 MG TAB PO SCH (08:16)
[2020-05-19] MEDS: DOCUSATE SODIUM 100 MG CAP PO SCH ×2 (08:20→17:00)
[2020-05-19] MEDS ORDERED: CEPACOL SORE THROAT LOZENGES PO PRN (16:15)
[2020-05-19] MEDS: FOLIC ACID 1 MG TAB PO SCH (18:10)
[2020-05-19] MEDS: TOPIRAMATE 25 MG TAB PO SCH (21:00)
[2020-05-19] MEDS: ATORVASTATIN 20 MG TAB PO SCH (21:00)
[2020-05-19] MEDS: METOPROLOL SUCCINATE 25 MG TAB XL PO SCH (21:00)
[2020-05-19] MEDS: TEMAZEPAM 15 MG CAP PO PRN (23:31)
[2020-05-20] VITALS: BP 126/65
[2020-05-20 04:00] VITALS: BP 121/73
[2020-05-20] MEDS: LEVOTHYROXINE SODIUM 88 MCG TAB PO SCH (06:00)
[2020-05-20] MEDS: MEROPENEM 500MG/ NS 50ML 50 ML IV SCH (06:00)
[2020-05-20] MEDS ORDERED: BACTRIM DS TAB1 EACH PO (06:41)
[2020-05-20] MEDS ORDERED: LEVOTHYROXINE75 MCG PO (06:41)
[2020-05-20 06:48] LABS: BASOPHILS % 0.6 % (0.0-1.0); EOSINOPHILS # (AUTO) 0.2 (0.0-0.4); EOSINOPHILS % 3.2 % (0.0-6.0); HEMATOCRIT 26.4 % (34.2-44.1); HEMOGLOBIN 8.3 g/dL (12.0-16.0); LYMPHOCYTES # (AUTO) 2.7 (1.0-3.2); LYMPHOCYTES % 50.7 % (18.0-39.1); MEAN CORPUSCULAR HEMOGLOBIN 30.2 pg (28-32); MEAN CORPUSCULAR HGB CONC 31.4 g/dL (31-35); MONOCYTES # (AUTO) 0.5 (0.2-0.8); MONOCYTES % 9.4 % (4.4-11.3); NEUTROPHILS # (AUTO) 1.9 (2.1-6.9); NEUTROPHILS % 35.7 % (38.7-80.0); PLATELET COUNT 244 x10e3/uL (140-360); RED BLOOD COUNT 2.75 x10e6/uL (3.6-5.1)
[2020-05-20 07:40] LABS: ANION GAP 11.5 mmol/L (8-16); BLOOD UREA NITROGEN < 5 mg/dL (7-26); CALCIUM 7.3 mg/dL (8.4-10.2); CARBON DIOXIDE 21 mmol/L (22-29); CHLORIDE 112 mmol/L (98-107); CREATININE, SERUM 0.59 mg/dL (0.57-1.11); EST GLOMERULAR FILTRATION RATE > 60 ML/MIN (60-); GLUCOSE 66 mg/dL (74-118); POTASSIUM 3.5 mmol/L (3.5-5.1); SODIUM 141 mmol/L (136-145)
[2020-05-20 07:49] VITALS: BP 124/62
[2020-05-20 07:58] LABS: BUN/CREATININE RATIO 8 (6-25)
[2020-05-20 08:02] VITALS: BP 124/62
[2020-05-20] MEDS: PANTOPRAZOLE SOD 40 MG TABEC PO SCH (08:05)
[2020-05-20] MEDS: GABAPENTIN 400 MG CAP PO SCH (08:05)
[2020-05-20] MEDS: NON-FORMULARY MEDICATION (Biotin 5,000 MCG) PO SCH (08:05)
[2020-05-20] MEDS: DOCUSATE SODIUM 100 MG CAP PO SCH (08:05)
[2020-05-20] MEDS: TROSPIUM CHLORIDE 60 MG PO SCH (08:05)
[2020-05-20] MEDS: ACARBOSE 25 MG PO SCH (08:05)
[2020-05-20] MEDS: ASPIRIN 81 MG ENTERIC COATED PO SCH (08:05)
[2020-05-20] MEDS: HYDROCODONE/APAP 7.5MG-325MG 1 EA TAB PO SCH (08:06)
[2020-05-20] MEDS: THIAMINE HCL 100 MG TAB PO SCH (08:06)
[2020-05-20] MEDS: OYST-CAL-D 500MG TABLET PO SCH (08:06)
[2020-05-20] MEDS: TIZANIDINE HCL 4 MG TAB PO SCH (08:06)
[2020-05-20] MEDS: CYANOCOBALAMIN 1,000 MCG TAB PO SCH (08:06)
[2020-05-20] MEDS: PYRIDOXINE HCL 50 MG TAB PO SCH (08:06)
[2020-05-20 11:41] VITALS: BP 19/62
[2020-05-23] MEDS ORDERED: ETANERCEPT 50 MG INJ SCH (09:00)
== END 2020-05-20 12:35 | disposition home or self-care (01) | DRG 178 ==
LOC: ER 15:34 → ERHOLD 16:42 → MED/SURG 21:41 → OBSVTOIN 05-16 11:51 → MED/SURG3 05-17 21:11
PROVIDERS: ADMIT Internal Medicine; ATTEND Internal Medicine
DX: J69.0 Pneumonitis due to inhalation of food and vomit (principal); N39.0 Urinary tract infection, site not specified; E44.0 Moderate protein-calorie malnutrition; E87.1 Hypo-osmolality and hyponatremia; Z16.12 Extended spectrum beta lactamase (ESBL) resistance; R62.7 Adult failure to thrive; Z68.34 Body mass index [BMI] 34.0-34.9, adult; E86.1 Hypovolemia; E16.2 Hypoglycemia, unspecified; E83.42 Hypomagnesemia; B96.20 Unspecified Escherichia coli [E. coli] as the cause of diseases classified elsewhere; E03.9 Hypothyroidism, unspecified; E78.5 Hyperlipidemia, unspecified; Z88.1 Allergy status to other antibiotic agents; Z88.5 Allergy status to narcotic agent; Z88.0 Allergy status to penicillin; Z91.048 Other nonmedicinal substance allergy status; Z98.84 Bariatric surgery status; Z80.1 Family history of malignant neoplasm of trachea, bronchus and lung; D64.9 Anemia, unspecified; E88.09 Other disorders of plasma-protein metabolism, not elsewhere classified; E83.51 Hypocalcemia; Z20.822 Contact with and (suspected) exposure to COVID-19; Z90.49 Acquired absence of other specified parts of digestive tract; Z96.653 Presence of artificial knee joint, bilateral; K76.0 Fatty (change of) liver, not elsewhere classified; K44.9 Diaphragmatic hernia without obstruction or gangrene
CPT/HCPCS: 36415; 71045; 71250; 80048; 80053; 80061; 81001; 82270; 82550; 82553; 82948; 83036; 83735; 84100; 84439; 84443; 84484; 85025; 87086; 87186; 93005; 99284; G0378; J0456; J0610; J0696; J2405; J3411; J3475; J7030; J7042; U0002

== ENCOUNTER 2020-07-31 21:50 | Inpatient (IN) | payer MEDICARE, OTHER ==
[~2020-07-31] VITALS: Ht 152.4 cm; Wt 61.8 kg
[~2020-07-31 21:50] MED LIST changes: +ACARBOSE25 MG PO; +ASPIRIN EC81 MG PO; +ATORVASTATIN CA20 MG PO; +BIOTIN2500 MCG PO; +CALCIUM + VITA1 EACH; +CALCIUM 600 +1 EAC2 PO; +ENBREL MIN50 MG/1 ML INJ; +LASIX20 MG PO; +LEVOTHYROXINE75 MCG PO; +LEVOTHYROXINE88 MCG PO; +METOPROLOL SUCC25 MG PO; +NEURONTIN400 MG PO; +OMEPRAZOLE40 MG PO; +POTASSIUM99 M1 PO; +SPIRONOLACTONE25 MG PO; +TIZANIDINE HCL4 MG PO; +TOPIRAMATE25 MG PO; +TROSPIUM CHLORI20 MG PO; +ULTRAM 50MG50 MG PO; +VITAMIN B-1100 M1 PO; +VITAMIN B6 PO
[2020-07-31] MEDS ORDERED: DEXTROSE 50% SYRINGE 50 ML IV STA (21:54)
[2020-07-31] MEDS ORDERED: NALOXONE HCL 2MG/2 ML SYRINGE IV ONE ×3 (22:00→23:30)
[2020-07-31] MEDS ORDERED: SODIUM CHLORIDE 0.9% 1000ML 1,000 ML IV ONE ×2 (22:00)
[2020-07-31] MEDS ORDERED: SODIUM CHLORIDE 0.9% 1000ML 2,000 ML ONE (22:03)
[2020-07-31] MEDS ORDERED: DEXTROSE 50% SYRINGE 50 ML IV ONE (22:04)
[2020-07-31 22:13] LABS: CLARITY,URINE SL CLOUDY (CLEAR); COLOR,URINE YELLOW (YELLOW); KETONES,URINE NEGATIVE (NEGATIVE); LEUKOCYTE ESTERASE ,URINE NEGATIVE (NEGATIVE); NITRITE,URINE NEGATIVE (NEGATIVE); PROTEIN,URINE DIPSTICK NEGATIVE (NEGATIVE); URINE UROBILINOGEN 0.2 mg/dL (0.2 - 1)
[2020-07-31 22:14] LABS: BASOPHILS # (AUTO) 0.1 (0.0-0.1); BASOPHILS % 0.3 % (0.0-1.0); EOSINOPHILS % 0.2 % (0.0-6.0); HEMATOCRIT 30.1 % (34.2-44.1); HEMOGLOBIN 10.3 g/dL (12.0-16.0); LYMPHOCYTES # (AUTO) 3.2 (1.0-3.2); LYMPHOCYTES % 12.4 % (18.0-39.1); MEAN CORPUSCULAR HGB CONC 34.2 g/dL (31-35); MEAN CORPUSCULAR VOLUME 90.7 fL (81-99); MONOCYTES # (AUTO) 0.8 (0.2-0.8); NEUTROPHILS % 82.1 % (38.7-80.0); PLATELET COUNT 187 x10e3/uL (140-360); RED BLOOD COUNT 3.32 x10e6/uL (3.6-5.1); RED CELL DISTRIBUTION WIDTH 14.1 % (11.7-14.4)
[2020-07-31 22:15] LABS: AMPHETAMINES SCREEN,URINE NEGATIVE (NEGATIVE); BENZODIAZEPINES SCREEN,URINE POSITIVE (NEGATIVE); PHENCYCLIDINE SCREEN,URINE NEGATIVE (NEGATIVE)
[2020-07-31 22:21] LABS: BACTERIA,URINE FEW /HPF; EPITHELIAL CELLS,URINE FEW /LPF; WBC,URINE (MAN) 0-5 /HPF (0-5)
[2020-07-31 22:23] LABS: INR 1.21; PARTIAL THROMBOPLASTIN TIME 29.9 seconds (23.8-35.5)
[2020-07-31 22:26] LABS: ALBUMIN 1.7 g/dL (3.5-5.0); ALBUMIN/GLOBULIN RATIO 0.7 (0.8-2.0); ANION GAP 14.9 mmol/L (8-16); CALCIUM 7.1 mg/dL (8.4-10.2); CREATININE, SERUM 1.54 mg/dL (0.57-1.11); POTASSIUM 4.9 mmol/L (3.5-5.1)
[2020-07-31 22:28] LABS: AMYLASE 10 U/L (25-125); LIPASE 4 U/L (8-78)
[2020-07-31] MEDS ORDERED: LEVOFLOXACIN 500MG/D5W 100ML 100 ML IV ONE ×2 (22:30→22:41)
[2020-07-31 22:32] LABS: SALICYLATE < 5.0 mg/dL (0-30)
[2020-07-31 22:33] LABS: CREATINE KINASE MB 21.5 ng/mL (0-5.0)
[2020-07-31] MEDS ORDERED: NOREPINEPHRINE 8 MG/D5W 250 ML 250 ML ONE (22:41)
[2020-07-31] MEDS ORDERED: SODIUM CHLORIDE 0.9% 500ML 500 ML ONE (23:21)
[2020-07-31] MEDS ORDERED: NOREPINEPHRINE INJ 4MG/4ML 8 MG in DEXTROSE 5% 250ML 250 ML IV STA (23:22)
[2020-07-31] MEDS ORDERED: SODIUM CHLORIDE 0.9% 500ML 500 ML IV ONE (23:30)
[2020-08-01] VITALS (26 sets, daily range): BP systolic 64–123; BP diastolic 45–96
[2020-08-01] MEDS ORDERED: NALOXONE HCL 2MG/2 ML SYRINGE IV ONE
[2020-08-01] MEDS: ALBUTEROL SULF 0.083% NEB SOLN 3 ML NEB NEB SCH ×6 (00:45→23:20)
[2020-08-01] MEDS ORDERED: DEXTROSE 5%/0.45% SOD CHL 1,000 ML IV ONE (00:45)
[2020-08-01] MEDS ORDERED: LEVOFLOXACIN 750MG/D5W 150ML 150 ML IV SCH (00:45)
[2020-08-01] MEDS ORDERED: LEVOFLOXACIN 750MG/D5W 150ML IV SCH (00:45)
[2020-08-01] MEDS: IPRATROPIUM BROMIDE 0.02% 2.5 ML NEB NEB SCH ×3 (07:20→19:10)
[2020-08-01] MEDS ORDERED: TRAMADOL HCL 50 MG TAB PO PRN (08:45)
[2020-08-01 09:03] LABS: BASOPHILS % 0.1 % (0.0-1.0); EOSINOPHILS % 0.1 % (0.0-6.0); HEMATOCRIT 29.1 % (34.2-44.1); LYMPHOCYTES # (AUTO) 2.8 (1.0-3.2); LYMPHOCYTES % 8.6 % (18.0-39.1); MEAN CORPUSCULAR HEMOGLOBIN 31.2 pg (28-32); MEAN CORPUSCULAR HGB CONC 34.4 g/dL (31-35); MEAN CORPUSCULAR VOLUME 90.7 fL (81-99); MONOCYTES # (AUTO) 0.8 (0.2-0.8); MONOCYTES % 2.5 % (4.4-11.3); NEUTROPHILS # (AUTO) 27.4 (2.1-6.9); NEUTROPHILS % 85.2 % (38.7-80.0); PLATELET COUNT 221 x10e3/uL (140-360); RED BLOOD COUNT 3.21 x10e6/uL (3.6-5.1)
[2020-08-01 09:26] LABS: CREATINE KINASE MB 52.7 ng/mL (0-5.0)
[2020-08-01] MEDS: HYDROCODONE/APAP 7.5MG-325MG 1 EA TAB PO SCH ×2 (09:28→21:45)
[2020-08-01] MEDS: ASPIRIN 81 MG ENTERIC COATED PO SCH (09:30)
[2020-08-01] MEDS: MEROPENEM 1GM 100 ML IV SCH ×2 (09:30→17:26)
[2020-08-01] MEDS: LEVOTHYROXINE SODIUM 75 MCG TAB PO SCH (09:30)
[2020-08-01] MEDS: PANTOPRAZOLE SOD 40 MG TABEC PO SCH (09:30)
[2020-08-01] MEDS: GABAPENTIN 300 MG CAP PO SCH ×4 (09:30→21:45)
[2020-08-01 09:32] LABS: ALBUMIN 1.6 g/dL (3.5-5.0); ALBUMIN/GLOBULIN RATIO 0.7 (0.8-2.0); ANION GAP 10.7 mmol/L (8-16); CREATININE, SERUM 1.09 mg/dL (0.57-1.11); POTASSIUM 3.7 mmol/L (3.5-5.1)
[2020-08-01 09:44] LABS: CALCIUM 6.5 mg/dL (8.4-10.2)
[2020-08-01] MEDS: VANCOMYCIN 1GM/NS 250 ML 250 ML IV SCH (10:00)
[2020-08-01] MEDS ORDERED: NOREPINEPHRINE 8 MG/D5W 250 ML 250 ML ONE (10:19)
[2020-08-01] MEDS ORDERED: ONDANSETRON HCL INJ 2MG/ML 2ML 2 MG/ML VIAL IV PRN ×2 (13:30)
[2020-08-01 15:03] LABS: BAND NEUTROPHILS % (MANUAL) 16 %; LYMPHOCYTES % (MANUAL) 5 % (19-48); METAMYELOCYTES % (MANUAL) 4 % (0-0); MONOCYTES % (MANUAL) 3 % (3.4-9.0); NEUTROPHILS % (MANUAL) 72 % (40-74)
[2020-08-01 15:04] LABS: PLATELET ESTIMATE ADEQUATE; SMUDGE CELLS FEW
[2020-08-01 15:05] LABS: PLATELET MORPHOLOGY COMMENT NORMAL
[2020-08-01] MEDS: SODIUM CHLORIDE 0.9% 1000ML 1,000 ML IV SCH (17:26)
[2020-08-01 17:53] LABS: CREATINE KINASE MB 41.4 ng/mL (0-5.0)
[2020-08-01] MEDS: ATORVASTATIN 20 MG TAB PO SCH (21:45)
[2020-08-01] MEDS: TOPIRAMATE 25 MG TAB PO SCH (21:45)
[2020-08-01] MEDS: CALCIUM CARBONATE 500 MG CHEWABLE TABS PO SCH (21:45)
[2020-08-01] MEDS: TEMAZEPAM 15 MG CAP PO PRN (22:34)
[2020-08-02] VITALS (26 sets, daily range): BP systolic 81–104; BP diastolic 40–78
[2020-08-02] MEDS: ALBUTEROL SULF 0.083% NEB SOLN 3 ML NEB NEB SCH ×6 (00:45→19:05)
[2020-08-02] MEDS: MEROPENEM 1GM 100 ML IV SCH ×3 (01:07→16:56)
[2020-08-02] MEDS: IPRATROPIUM BROMIDE 0.02% 2.5 ML NEB NEB SCH ×5 (02:30→22:37)
[2020-08-02] MEDS: SODIUM CHLORIDE 0.9% 1000ML 1,000 ML IV SCH (05:00)
[2020-08-02] MEDS: LEVOTHYROXINE SODIUM 75 MCG TAB PO SCH (06:02)
[2020-08-02 06:04] LABS: BASOPHILS # (AUTO) 0.1 (0.0-0.1); BASOPHILS % 0.4 % (0.0-1.0); EOSINOPHILS # (AUTO) 0.1 (0.0-0.4); EOSINOPHILS % 0.3 % (0.0-6.0); HEMATOCRIT 25.7 % (34.2-44.1); HEMOGLOBIN 8.9 g/dL (12.0-16.0); LYMPHOCYTES % 10.4 % (18.0-39.1); MEAN CORPUSCULAR HGB CONC 34.6 g/dL (31-35); MEAN CORPUSCULAR VOLUME 89.5 fL (81-99); MONOCYTES # (AUTO) 0.6 (0.2-0.8); NEUTROPHILS # (AUTO) 16.2 (2.1-6.9); NEUTROPHILS % 85.1 % (38.7-80.0); PLATELET COUNT 148 x10e3/uL (140-360); RED BLOOD COUNT 2.87 x10e6/uL (3.6-5.1); RED CELL DISTRIBUTION WIDTH 14.2 % (11.7-14.4)
[2020-08-02 06:24] LABS: CALCIUM IONIZED 1.1 mmol/L (1.09-1.30)
[2020-08-02 06:31] LABS: ALANINE AMINOTRANSFERASE 49 IU/L (0-55); ALBUMIN 1.4 g/dL (3.5-5.0); ALBUMIN/GLOBULIN RATIO 0.7 (0.8-2.0); ALKALINE PHOSPHATASE 121 IU/L (40-150); ANION GAP 9.3 mmol/L (8-16); BLOOD UREA NITROGEN 10 mg/dL (7-26); BUN/CREATININE RATIO 15 (6-25); CARBON DIOXIDE 22 mmol/L (22-29); CHLORIDE 111 mmol/L (98-107); CREATININE, SERUM 0.68 mg/dL (0.57-1.11); EST GLOMERULAR FILTRATION RATE > 60 ML/MIN (60-); GLUCOSE 85 mg/dL (74-118); POTASSIUM 3.3 mmol/L (3.5-5.1); SODIUM 139 mmol/L (136-145)
[2020-08-02 06:37] LABS: MAGNESIUM 1.2 MG/DL (1.3-2.1); PHOSPHORUS 1.9 MG/DL (2.3-4.7)
[2020-08-02 06:51] LABS: CALCIUM 6.8 mg/dL (8.4-10.2)
[2020-08-02] MEDS: PANTOPRAZOLE SOD 40 MG TABEC PO SCH (08:02)
[2020-08-02] MEDS: ASPIRIN 81 MG ENTERIC COATED PO SCH (08:03)
[2020-08-02] MEDS: GABAPENTIN 300 MG CAP PO SCH (08:03)
[2020-08-02] MEDS: HYDROCODONE/APAP 7.5MG-325MG 1 EA TAB PO SCH ×2 (08:03→20:13)
[2020-08-02] MEDS: CALCIUM CARBONATE 500 MG CHEWABLE TABS PO SCH ×3 (08:03→20:14)
[2020-08-02] MEDS: VANCOMYCIN 1GM/NS 250 ML 250 ML IV SCH (09:40)
[2020-08-02] MEDS: MIDODRINE HCL 5 MG TABLET PO SCH ×2 (12:08→21:47)
[2020-08-02] MEDS: GABAPENTIN 400 MG CAP PO SCH ×3 (12:08→20:13)
[2020-08-02] MEDS ORDERED: SODIUM CHLORIDE 0.9% 1000ML 1,000 ML IV ONE (13:00)
[2020-08-02] MEDS ORDERED: MAGNESIUM SULFATE 2GM/50ML 50 ML IV ONE ×2 (13:00→15:00)
[2020-08-02] MEDS ORDERED: SODIUM CHLORIDE 0.9% IV ONE (13:30)
[2020-08-02] MEDS ORDERED: POTASSIUM PHOSPHATE 20 MM in SODIUM CHLORIDE 0.9% 250ML 250 ML IV ONE (13:30)
[2020-08-02] MEDS ORDERED: [UNRECOGNIZED DRUG - OTHER] IV ONE (13:30)
[2020-08-02] MEDS: ATORVASTATIN 20 MG TAB PO SCH (20:13)
[2020-08-02] MEDS: TOPIRAMATE 25 MG TAB PO SCH (20:14)
[2020-08-02] MEDS ORDERED: SODIUM CHLORIDE 0.9% 1000ML 1,000 ML ONE (20:24)
[2020-08-02] MEDS: TEMAZEPAM 15 MG CAP PO PRN (22:22)
[2020-08-02] MEDS ORDERED: NOREPINEPHRINE INJ 4MG/4ML 8 MG in DEXTROSE 5% 250ML 250 ML IV PRN (22:45)
[2020-08-02] MEDS ORDERED: NOREPINEPHRINE 8 MG/D5W 250 ML 250 ML ONE (22:50)
[2020-08-03] VITALS (26 sets, daily range): BP systolic 65–116; BP diastolic 32–117
[2020-08-03] MEDS: ALBUTEROL SULF 0.083% NEB SOLN 3 ML NEB NEB SCH ×7 (00:45→22:59)
[2020-08-03] MEDS: MEROPENEM 1GM 100 ML IV SCH ×3 (00:53→17:40)
[2020-08-03] MEDS: LEVOTHYROXINE SODIUM 75 MCG TAB PO SCH (05:39)
[2020-08-03] MEDS: MIDODRINE HCL 5 MG TABLET PO SCH ×3 (05:39→23:30)
[2020-08-03] MEDS: IPRATROPIUM BROMIDE 0.02% 2.5 ML NEB NEB SCH ×4 (06:00→22:59)
[2020-08-03 06:05] LABS: BASOPHILS % 0.3 % (0.0-1.0); EOSINOPHILS # (AUTO) 0.1 (0.0-0.4); EOSINOPHILS % 0.7 % (0.0-6.0); HEMATOCRIT 25.1 % (34.2-44.1); HEMOGLOBIN 8.6 g/dL (12.0-16.0); LYMPHOCYTES # (AUTO) 1.3 (1.0-3.2); LYMPHOCYTES % 14.6 % (18.0-39.1); MEAN CORPUSCULAR HEMOGLOBIN 30.9 pg (28-32); MEAN CORPUSCULAR HGB CONC 34.3 g/dL (31-35); MEAN CORPUSCULAR VOLUME 90.3 fL (81-99); MONOCYTES # (AUTO) 0.4 (0.2-0.8); NEUTROPHILS # (AUTO) 6.8 (2.1-6.9); NEUTROPHILS % 78.8 % (38.7-80.0); PLATELET COUNT 109 x10e3/uL (140-360); RED BLOOD COUNT 2.78 x10e6/uL (3.6-5.1); RED CELL DISTRIBUTION WIDTH 14.3 % (11.7-14.4)
[2020-08-03 06:22] LABS: ALANINE AMINOTRANSFERASE 99 IU/L (0-55); ALBUMIN 1.4 g/dL (3.5-5.0); ALBUMIN/GLOBULIN RATIO 0.6 (0.8-2.0); ALKALINE PHOSPHATASE 154 IU/L (40-150); ANION GAP 8.9 mmol/L (8-16); BLOOD UREA NITROGEN < 5 mg/dL (7-26); CARBON DIOXIDE 23 mmol/L (22-29); CHLORIDE 111 mmol/L (98-107); CREATININE, SERUM 0.58 mg/dL (0.57-1.11); EST GLOMERULAR FILTRATION RATE > 60 ML/MIN (60-); POTASSIUM 3.9 mmol/L (3.5-5.1); SODIUM 139 mmol/L (136-145)
[2020-08-03 06:23] LABS: BUN/CREATININE RATIO 9 (6-25)
[2020-08-03 06:24] LABS: CALCIUM 6.9 mg/dL (8.4-10.2); GLUCOSE 58 mg/dL (74-118)
[2020-08-03 06:40] LABS: MAGNESIUM 1.8 MG/DL (1.3-2.1); PHOSPHORUS 2.3 MG/DL (2.3-4.7)
[2020-08-03] MEDS ORDERED: Calcium Carbonate 500MG Chew PO (09:04)
[2020-08-03] MEDS ORDERED: CIPRO500 MG PO (09:04)
[2020-08-03] MEDS ORDERED: GABAPENTIN400 MG PO (09:04)
[2020-08-03] MEDS ORDERED: MIDODRINE HCL5 MG PO (09:04)
[2020-08-03] MEDS: CALCIUM CARBONATE 500 MG CHEWABLE TABS PO SCH ×3 (09:31→20:32)
[2020-08-03] MEDS: PANTOPRAZOLE SOD 40 MG TABEC PO SCH (09:31)
[2020-08-03] MEDS: GABAPENTIN 400 MG CAP PO SCH ×4 (09:31→20:32)
[2020-08-03] MEDS: ASPIRIN 81 MG ENTERIC COATED PO SCH (09:31)
[2020-08-03] MEDS: HYDROCODONE/APAP 7.5MG-325MG 1 EA TAB PO SCH ×2 (09:31→20:32)
[2020-08-03] MEDS ORDERED: MIDODRINE HCL 5 MG TABLET PO NR (11:15)
[2020-08-03] MEDS ORDERED: LORAZEPAM 0.5 MG TAB PO PRN (12:45)
[2020-08-03] MEDS ORDERED: MAGNESIUM OXIDE 400 MG TAB PO ONE (13:10)
[2020-08-03] MEDS ORDERED: MIDODRINE 2.5 MG TAB PO ONE (13:15)
[2020-08-03] MEDS ORDERED: DIATRIZOATE MEGL/DIATRIZOA SOD 30 ML BTL PO ONE (13:37)
[2020-08-03] MEDS: ATORVASTATIN 20 MG TAB PO SCH (20:32)
[2020-08-03] MEDS: TOPIRAMATE 25 MG TAB PO SCH (20:32)
[2020-08-04] VITALS (14 sets, daily range): BP systolic 80–117; BP diastolic 37–77
[2020-08-04] MEDS: MEROPENEM 1GM 100 ML IV SCH ×2 (00:13→10:24)
[2020-08-04] MEDS: ALBUTEROL SULF 0.083% NEB SOLN 3 ML NEB NEB SCH ×3 (03:40→12:45)
[2020-08-04 05:14] LABS: BASOPHILS % 0.4 % (0.0-1.0); EOSINOPHILS % 0.6 % (0.0-6.0); HEMATOCRIT 24.4 % (34.2-44.1); HEMOGLOBIN 8.3 g/dL (12.0-16.0); LYMPHOCYTES # (AUTO) 1.1 (1.0-3.2); LYMPHOCYTES % 14.9 % (18.0-39.1); MEAN CORPUSCULAR HEMOGLOBIN 30.5 pg (28-32); MEAN CORPUSCULAR VOLUME 89.7 fL (81-99); MONOCYTES # (AUTO) 0.8 (0.2-0.8); MONOCYTES % 11.7 % (4.4-11.3); NEUTROPHILS # (AUTO) 4.8 (2.1-6.9); NEUTROPHILS % 67.4 % (38.7-80.0); PLATELET COUNT 103 x10e3/uL (140-360); RED BLOOD COUNT 2.72 x10e6/uL (3.6-5.1); RED CELL DISTRIBUTION WIDTH 14.5 % (11.7-14.4)
[2020-08-04 05:35] LABS: ALANINE AMINOTRANSFERASE 81 IU/L (0-55); ALBUMIN 1.4 g/dL (3.5-5.0); ALBUMIN/GLOBULIN RATIO 0.6 (0.8-2.0); ALKALINE PHOSPHATASE 132 IU/L (40-150); ANION GAP 8.5 mmol/L (8-16); BLOOD UREA NITROGEN 5 mg/dL (7-26); BUN/CREATININE RATIO 8 (6-25); CALCIUM 7.1 mg/dL (8.4-10.2); CARBON DIOXIDE 23 mmol/L (22-29); CHLORIDE 106 mmol/L (98-107); CREATININE, SERUM 0.61 mg/dL (0.57-1.11); EST GLOMERULAR FILTRATION RATE > 60 ML/MIN (60-); GLUCOSE 63 mg/dL (74-118); POTASSIUM 3.5 mmol/L (3.5-5.1); SODIUM 134 mmol/L (136-145)
[2020-08-04] MEDS: MIDODRINE HCL 5 MG TABLET PO SCH ×2 (06:05→11:59)
[2020-08-04] MEDS: LEVOTHYROXINE SODIUM 75 MCG TAB PO SCH (06:05)
[2020-08-04] MEDS: IPRATROPIUM BROMIDE 0.02% 2.5 ML NEB NEB SCH ×2 (07:50→12:00)
[2020-08-04] MEDS: PANTOPRAZOLE SOD 40 MG TABEC PO SCH (10:24)
[2020-08-04] MEDS: ASPIRIN 81 MG ENTERIC COATED PO SCH (10:24)
[2020-08-04] MEDS: GABAPENTIN 400 MG CAP PO SCH (10:24)
[2020-08-04] MEDS: CALCIUM CARBONATE 500 MG CHEWABLE TABS PO SCH (10:24)
[2020-08-04] MEDS: HYDROCODONE/APAP 7.5MG-325MG 1 EA TAB PO SCH (10:24)
[2020-08-04] MEDS ORDERED: MAGNESIUM OXIDE 400 MG TAB PO SCH (11:45)
[2020-08-04] MEDS ORDERED: MIDODRINE HCL5 MG PO (12:00)
[2020-08-04] MEDS ORDERED: POTASSIUM CHLORIDE 20 MEQ TAB CR PO ONE (21:00)
== END 2020-08-04 13:00 | disposition home or self-care (01) | DRG 871 ==
LOC: ER 21:55 → ERHOLD 08-01 00:41 → ICU 08-01 00:50
PROVIDERS: ADMIT Internal Medicine; ATTEND Internal Medicine
PROC: 02HV33Z Insertion of Infusion Device into Superior Vena Cava, Percutaneous Approach (ICD-10-PCS; principal; 2020-08-01)
PROC: B548ZZA Ultrasonography of Superior Vena Cava, Guidance (ICD-10-PCS; 2020-08-01)
PROC: 3E043XZ Introduction of Vasopressor into Central Vein, Percutaneous Approach (ICD-10-PCS; 2020-08-01)
PROC: 02HV33Z Insertion of Infusion Device into Superior Vena Cava, Percutaneous Approach (ICD-10-PCS; 2020-08-02)
PROC: B548ZZA Ultrasonography of Superior Vena Cava, Guidance (ICD-10-PCS; 2020-08-02)
DX: A41.9 Sepsis, unspecified organism (principal); R65.21 Severe sepsis with septic shock; I21.A1 Myocardial infarction type 2; J15.6 Pneumonia due to other Gram-negative bacteria; J96.01 Acute respiratory failure with hypoxia; N39.0 Urinary tract infection, site not specified; E87.1 Hypo-osmolality and hyponatremia; N17.9 Acute kidney failure, unspecified; E44.0 Moderate protein-calorie malnutrition; I47.1 Supraventricular tachycardia; T40.2X1A Poisoning by other opioids, accidental (unintentional), initial encounter; E03.9 Hypothyroidism, unspecified; K21.9 Gastro-esophageal reflux disease without esophagitis; E78.5 Hyperlipidemia, unspecified; Z98.84 Bariatric surgery status; Z88.5 Allergy status to narcotic agent; Z88.0 Allergy status to penicillin; Z88.8 Allergy status to other drugs, medicaments and biological substances; Z91.048 Other nonmedicinal substance allergy status; Z83.3 Family history of diabetes mellitus; Z80.9 Family history of malignant neoplasm, unspecified; Z80.1 Family history of malignant neoplasm of trachea, bronchus and lung; D64.9 Anemia, unspecified; E87.6 Hypokalemia; E83.39 Other disorders of phosphorus metabolism; E83.42 Hypomagnesemia; Z20.822 Contact with and (suspected) exposure to COVID-19; B96.1 Klebsiella pneumoniae [K. pneumoniae] as the cause of diseases classified elsewhere; E88.09 Other disorders of plasma-protein metabolism, not elsewhere classified
CPT/HCPCS: 36415; 36555; 36569; 51700; 70450; 71045; 71250; 74176; 74230; 80053; 80307; 80320; 80329; 81001; 82088; 82150; 82533; 82550; 82553; 82948; 83605; 83690; 83735; 84100; 84244; 84443; 84484; 85025; 85610; 85730; 87040; 87071; 87086; 87186; 87205; 93005; 93306; 94640; 99284; J1956; J2310; J2405; J3370; J3475; J7030; J7040; J7050; J7799; U0002

== ENCOUNTER 2020-08-14 10:45 | Emergency (ER) | payer MEDICARE, OTHER ==
[~2020-08-14] VITALS: Ht 152.4 cm; Wt 61.7 kg
[~2020-08-14 10:45] MED LIST changes: +CIPRO500 MG PO; +Calcium Carbonate 500MG Chew PO; +GABAPENTIN400 MG PO; +MIDODRINE HCL5 MG PO
[2020-08-14] MEDS ORDERED: SODIUM CHLORIDE 0.9% 1000ML 1,000 ML IV SCH (11:15)
[2020-08-14 11:23] LABS: BASOPHILS # (AUTO) 0.1 (0.0-0.1); BASOPHILS % 0.8 % (0.0-1.0); EOSINOPHILS # (AUTO) 0.2 (0.0-0.4); EOSINOPHILS % 1.8 % (0.0-6.0); HEMATOCRIT 30.4 % (34.2-44.1); HEMOGLOBIN 9.7 g/dL (12.0-16.0); LYMPHOCYTES # (AUTO) 2.6 (1.0-3.2); LYMPHOCYTES % 26.4 % (18.0-39.1); MEAN CORPUSCULAR HEMOGLOBIN 30.9 pg (28-32); MEAN CORPUSCULAR HGB CONC 31.9 g/dL (31-35); MEAN CORPUSCULAR VOLUME 96.8 fL (81-99); MONOCYTES # (AUTO) 0.7 (0.2-0.8); MONOCYTES % 6.5 % (4.4-11.3); NEUTROPHILS # (AUTO) 6.4 (2.1-6.9); PLATELET COUNT 523 x10e3/uL (140-360); RED BLOOD COUNT 3.14 x10e6/uL (3.6-5.1); RED CELL DISTRIBUTION WIDTH 15.7 % (11.7-14.4)
[2020-08-14] MEDS ORDERED: MIDODRINE 2.5 MG TAB PO STA (11:27)
[2020-08-14 11:28] LABS: CLARITY,URINE CLEAR (CLEAR); COLOR,URINE YELLOW (YELLOW); KETONES,URINE NEGATIVE (NEGATIVE); LEUKOCYTE ESTERASE ,URINE NEGATIVE (NEGATIVE); NITRITE,URINE NEGATIVE (NEGATIVE); PROTEIN,URINE DIPSTICK NEGATIVE (NEGATIVE); URINE UROBILINOGEN 0.2 mg/dL (0.2 - 1)
[2020-08-14 11:30] LABS: AMPHETAMINES SCREEN,URINE POSITIVE (NEGATIVE); PHENCYCLIDINE SCREEN,URINE NEGATIVE (NEGATIVE)
[2020-08-14] MEDS ORDERED: NALOXONE HCL 2MG/2 ML SYRINGE IV ONE (11:30)
[2020-08-14] MEDS ORDERED: SODIUM CHLORIDE 0.9% 1000ML 1,000 ML IV ONE (11:30)
[2020-08-14 11:31] LABS: BENZODIAZEPINES SCREEN,URINE POSITIVE (NEGATIVE)
[2020-08-14 11:39] LABS: EPITHELIAL CELLS,URINE RARE /LPF; MUCUS,URINE FEW (RARE); RBC,URINE 0-5 /HPF (0-5); WBC,URINE (MAN) 0-5 /HPF (0-5)
[2020-08-14 12:04] LABS: ALBUMIN/GLOBULIN RATIO 0.7 (0.8-2.0); ANION GAP 15.9 mmol/L (8-16); CALCIUM 7.9 mg/dL (8.4-10.2); CREATININE, SERUM 1.06 mg/dL (0.57-1.11); POTASSIUM 4.9 mmol/L (3.5-5.1)
[2020-08-14 12:36] LABS: FREE THYROXINE INDEX 1.9964 (1.4-3.8); THYROID STIMULATING HORMONE 4.813 uIU/mL (0.350-4.940)
== END 2020-08-14 17:02 | disposition other institution (70) ==
LOC: ER 11:19
DX: I95.9 Hypotension, unspecified (principal); F11.90 Opioid use, unspecified, uncomplicated; Z91.14 Patient's other noncompliance with medication regimen; R94.31 Abnormal electrocardiogram [ECG] [EKG]; E78.5 Hyperlipidemia, unspecified; E03.9 Hypothyroidism, unspecified; K21.9 Gastro-esophageal reflux disease without esophagitis; Z98.84 Bariatric surgery status; Z20.822 Contact with and (suspected) exposure to COVID-19
CPT/HCPCS: 36415; 36569; 51700; 70450; 71045 ×2; 80053; 80307; 81001; 83605; 83880; 84436; 84443; 84479; 84484; 85025; 86850; 86900; 87040; 87086; 93005; 99284; J2310; J7030; U0002